=== PATIENT | female | born 1975 | race Caucasian/White ===

== ENCOUNTER 2018-12-13 14:57 | Inpatient (IN) | payer OTHER ==
[~2018-12-13] VITALS: Ht 170.2 cm; Wt 45.8 kg
[2018-12-13] VITALS (31 sets, daily range): BP systolic 0–182; BP diastolic 0–122
--- NOTE | 2018-12-13 14:59 | NUR ---
SEE CODE FLOW SHEET
--- NOTE | 2018-12-13 15:14 | NUR ---
POSITIVE COLOR CHANGE
--- NOTE | 2018-12-13 15:20 | NUR ---
1 LITER NS IVF BOLUS
--- NOTE | 2018-12-13 15:22 | NUR ---
PCXR TUBE PLACEMENT ET TUBE PULLED BACK TO 24@LIP.
--- NOTE | 2018-12-13 15:26 | NUR ---
PCXR FOR ET TUBE PLACEMENT.
--- NOTE | 2018-12-13 15:28 | NUR ---
NOT ABLE TO CALL NEXT OF KIN ON PATIENT INFORMATION DUE TO NUMBER BEING OUT OF ORDER.
[2018-12-13 15:37] LABS: PO2 57.1 mmHg (75.0-100.0)
[2018-12-13 15:54] LABS: HEMATOCRIT 34.3 % (37.0-47.0); HEMOGLOBIN 10.6 gm/dL (12.0-15.0); MCH 31.2 pg (26.0-34.0); MCV 100.5 fL (80.0-100.0); MPV 8.4 fl. (7.2-11.1); NUCLEATED RBCS 0 /100WBC; PLATELET COUNT* 209 thou/uL (150-400); RBC 3.41 mil/uL (4.20-5.00); RDW-CV 14.3 % (10.5-14.5); WBC 8.2 thou/uL (4.0-11.0)
[2018-12-13 16:01] LABS: CALCIUM 7.4 mg/dL (8.5-10.1); CREATININE 1.2 mg/dL (0.6-1.3); POTASSIUM 3.8 mmol/L (3.5-5.1)
[2018-12-13 16:14] LABS: ALBUMIN 2.1 g/dL (3.4-5.0); MAGNESIUM 2.4 mg/dL (1.8-2.4); TOTAL BILIRUBIN 0.3 mg/dL (<0.1-1.0); TROPONIN-I LEVEL 0.16 ng/mL (<0.06)
--- NOTE | 2018-12-13 16:18 | NUR ---
PT TO [facility] WITH CATH TEAM ON MONITOR WITH RT
[2018-12-13 16:43] LABS: ABSOLUTE MONOCYTES 0.5 thou/uL (0.0-1.2); ABSOLUTE NEUTROPHILS 2.7 thou/uL (1.6-8.1); PLATELET ESTIMATE ADEQUATE
--- NOTE | 2018-12-13 16:49 | NUR ---
PLACED TEMP SENSING ECHEVERRIA CATHETER AND POSITIONED CODE ICE PADS WITH MAIN CHAIREZ IN THE EMERGENCY DEPARTMENT PRIOR TO PT TRANSFER TO EXECUTIVE LEGAL SECRETARY. EXECUTIVE LEGAL SECRETARY STATED THEY WERE NOT GOING TO HOOK PT UP TO CODE ICE MACHINE AT THIS TIME AND THE MACHINE WAS BROUGHT INTO ICU BED 4 TO AWAIT PT ARRIVAL. WILL SIGN OFF AT THIS TIME
[2018-12-13 16:53] LABS: BE -25.4 mmol/L (-2 to +3); PO2 110.9 mmHg (75.0-100.0)
[2018-12-13 16:54] LABS: pH 6.783 (7.340-7.450)
[2018-12-13 16:55] LABS: PCO2 70.7 mmHg (35.0-45.0)
[2018-12-13 18:23] LABS: ANTI-Xa-UNFRACTIONATED HEP 7.104; BE -16.2 mmol/L (-2 to +3); PO2 74.3 mmHg (75.0-100.0)
--- NOTE | 2018-12-13 18:25 | CARD ---
[address] [address] CARDIAC CATH REPORT Name: NASEEM THOMAS Room: [address] IN ..#: [id number] Admission: 12/13/18 Attend Phys: Elina Mckeon MD Discharge: Date of : 77 Report #: [id number] THIS REPORT FOR: //name// APPROVED REPORT Study performed: 12/13/2018 16:10:27 Patient Details Patient Status: In-Patient Room #: The patient is a 43 year-old female Event Personnel Chad Pena Visitor Services Representative, Joanne Johnson RN Supervisor Sign Shop, Dulce Maria Hidalgo Monitor, Rj Martinez PORTFOLIO MANAGER Monitor, Arnaldo Rm PORTFOLIO MANAGER Scrub Procedures Performed Left Heart Cath w/or w/o Coronaries [id number] [facility] Indication Arrhythmia, Syncope, The patient suffered a cardiac arrest at a local store. Bystander CPR was initiated. When paramedics arrived, the patient was in ventricular fibrillation and was cardioverted. She was intubated and brought to the laboratory chemist on an emergent basis. The patient was on Levophed and intubated on arrival to the laboratory chemist. Procedure Narrative The patient was brought emergently to the Cardiac Catheterization Laboratory and was prepped and draped in a sterile manner. The right femoral was infiltrated with 1% Lidocaine subcutaneous anesthesia. A 6fr Ultimum Sheath sheath was inserted into the right femoral artery. Coronary angiography was performed using coronary diagnostic catheters. The right coronary system was accessed and visualized with a Diagnostic - JR4 catheter. The left coronary system was accessed and visualized with a Diagnostic - JL4 catheter. The left ventricle was accessed and visualized with a Diagnostic - ANG PIG catheter. Left ventricular/Aortic Valve gradient assessed via catheter pullback. Left ventriculogram was performed in REY projection. The patient tolerated the procedure well and there were no complications associated with the procedure. There was no hematoma. 6FR SHEATH PLACED INTO HER RIGHT FEMORAL VEIN. Arterial and venous sheaths were sutured in place [place] [address] CARDIAC CATH REPORT Name: MARTHANASEEM M Room: [address]#: [id number] Admission: 12/13/18 Attend Phys: Elina Mckeon MD Discharge: Date of : 77 Report #: [id number] Intraoperative Conscious Sedation Sedation start time: 433 Case end Time: 447 Fluoro Time: 1.2 minutes Dose: DAP 74014 cGycm2 27.8 mGy Contrast Type and Amount: Omnipaque 130 ml Coronary Angiography The patient's coronary anatomy is right dominant. [place] Artery Percent Stenosis Left Main: 0 % Prox LAD: 0 % Mid/Distal LAD: 0 % Circumflex: 0 % RCA: 0 % Ramus: % Left Ventriculography The left ventricular ejection fraction is estimated to be 25-30%. Left ventricular wall motion abnormalities are present. There is no mitral insufficiency. Akinesis noted of the distal anterior wall and apex. Hemodynamics The aortic pressure is 134/91 mmHg with a mean of 76 mmHg. The left ventricular pressure is 129/20 mmHg with a mean of mmHg. The left ventricular end diastolic pressure is 25 mmHg. There was no gradient across the aortic valve upon pullback. Pullback from the left ventricle to the aorta revealed no gradient across the aortic valve. Conclusion 1. Apical ballooning syndrome Recommendations Code Ice protocol <ELECTRONICALLY SIGNED> By: Chad Pena MD, [facility] 12/13/181824 24 24Dakhadar Pena MD, FACC /INF
[2018-12-13 18:27] LABS: PCO2 52.5 mmHg (35.0-45.0); pH 7.055 (7.340-7.450)
--- NOTE | 2018-12-13 18:32 | NUR ---
CONSULTED PULM DUE TO CRITICAL ABG RESULTS. MAIN BACA NOTIFIED WELL.
[2018-12-13 18:51] LABS: MCH 30.6 pg (26.0-34.0); MCHC 33.2 g/dL (28.0-37.0); MPV 7.9 fl. (7.2-11.1); NUCLEATED RBCS 0 /100WBC; RBC 4.76 mil/uL (4.20-5.00); RDW-CV 13.6 % (10.5-14.5); WBC 19.7 thou/uL (4.0-11.0)
[2018-12-13 18:53] LABS: HEMOGLOBIN 14.6 gm/dL (12.0-15.0); MCV 92.4 fL (80.0-100.0); PLATELET COUNT* 347 thou/uL (150-400)
[2018-12-13 18:56] LABS: CALCIUM 7.1 mg/dL (8.5-10.1); CREATININE 1.4 mg/dL (0.6-1.3)
--- NOTE | 2018-12-13 18:56 | NUR ---
RECEIVED PT FROM CALL CIRCUIT WORKER @ 0510. . PT PLACED ON CODE ICE PROTOCOL. PT UNRESPONSIVE. PT ON VENTILATOR. NO SEDATION. PUPILS 4+ AND NON-REACTIVE. ART LINE IN PLACE IN RIGHT GROIN. PT HYPERTENSIVE. 1 DOSE PRN HYDRLAZINE ADMININSTERED PER EMAR. ACCOMPANIED PT TO CT FOR STAT CT ORDERS. EMAR STATES RECTAL ASPIRIN ORDERED AT 1534. CALLED ER AND PHARMACY. CONFIRMED MEDICATION NOT ADMININSTERED. CALLED PHARMACY AND PHARMACY TO BRING MEDICATION.
[2018-12-13 19:00] LABS: APTT 30.1 Seconds (25.0-31.3); INR 1.3; PROTIME 12.9 Seconds (9.20-11.50)
[2018-12-13 19:09] LABS: MAGNESIUM 2.7 mg/dL (1.8-2.4); PHOSPHORUS* 8.1 mg/dL (2.5-4.9); TROPONIN-I LEVEL 0.47 ng/mL (<0.06)
[2018-12-13 19:18] LABS: FIBRINOGEN 207 mg/dL (200-340)
[2018-12-13 19:28] LABS: ABSOLUTE LYMPHOCYTES 2.8 thou/uL (0.8-5.3); ABSOLUTE MONOCYTES 0.4 thou/uL (0.0-1.2); ABSOLUTE NEUTROPHILS 16.5 thou/uL (1.6-8.1)
[2018-12-13 19:30] LABS: CLUMPED PLTS OCCASIONAL; PLATELET ESTIMATE ADEQUATE
--- NOTE | 2018-12-13 20:26 | NUR ---
DR NOTIFED THAT PT HAS NO RESPONSES AND PUPILS 4 AND NON REACTIVE. ASKED IF WANTED A NEURO CONSULT. AND AT THIS TIME NO CONSULT FOR NEURO. CRITICAL ABG'S CALLED TO PULMONARY. PULMONARY CALLED WHILE THIS RN IN CT WITH PT. PULMONARY AWARE THAT THIS RN AND PT IN CT. PULMONARY RE-PAGED WITH CRITICAL ABG'S. RECEIVED ORDERS TO INCREASE TIDAL VOLUME AND FLUID ORDERS RECEIVED.
[2018-12-13 22:33] LABS: AMP/METHAMP POSITIVE (Negative); BARBITURATES Negative (Negative); BENZODIAZEPINES POSITIVE (Negative); COCAINE Negative (Negative); METHADONE Negative (Negative); OPIATES Negative (Negative); PCP Negative (Negative); THC POSITIVE (Negative)
[2018-12-13 23:14] LABS: BE -9.7 mmol/L (-2 to +3)
[2018-12-13 23:16] LABS: PCO2 51.7 mmHg (35.0-45.0); pH 7.179 (7.340-7.450)
[2018-12-13 23:17] LABS: PO2 57.9 mmHg (75.0-100.0)
[2018-12-14] VITALS (43 sets, daily range): BP systolic 24–177; BP diastolic 8–115
[2018-12-14 01:06] LABS: ABSOLUTE LYMPHOCYTES 1.2 thou/uL (0.8-5.3); ABSOLUTE MONOCYTES 1.1 thou/uL (0.0-1.2); ABSOLUTE NEUTROPHILS 20.5 thou/uL (1.6-8.1); BASOPHILS 0.1 %; HEMATOCRIT 39.4 % (37.0-47.0); HEMOGLOBIN 13.1 gm/dL (12.0-15.0); LYMPHOCYTES 5.2 %; MCHC 33.2 g/dL (28.0-37.0); MCV 90.6 fL (80.0-100.0); MONOCYTES 4.8 %; MPV 7.9 fl. (7.2-11.1); NUCLEATED RBCS 0 /100WBC; PLATELET COUNT* 366 thou/uL (150-400); POLYS 89.9 %; RBC 4.35 mil/uL (4.20-5.00); RDW-CV 13.5 % (10.5-14.5); WBC 22.8 thou/uL (4.0-11.0)
[2018-12-14 01:28] LABS: APTT 24.8 Seconds (25.0-31.3); INR 1.3; PROTIME 12.9 Seconds (9.20-11.50)
[2018-12-14 01:33] LABS: CALCIUM 6.6 mg/dL (8.5-10.1); CREATININE 1.3 mg/dL (0.6-1.3); MAGNESIUM 2.2 mg/dL (1.8-2.4); PHOSPHORUS* 5.3 mg/dL (2.5-4.9); POTASSIUM 3.7 mmol/L (3.5-5.1)
[2018-12-14 04:34] LABS: BE -7.5 mmol/L (-2 to +3); PO2 66.5 mmHg (75.0-100.0)
[2018-12-14 04:36] LABS: PCO2 51.2 mmHg (35.0-45.0)
[2018-12-14 04:58] LABS: ABSOLUTE BASOPHILS 0.1 thou/uL (0.0-0.2); ABSOLUTE LYMPHOCYTES 0.7 thou/uL (0.8-5.3); ABSOLUTE MONOCYTES 0.5 thou/uL (0.0-1.2); ABSOLUTE NEUTROPHILS 17.3 thou/uL (1.6-8.1); BASOPHILS 0.3 %; EOSINOPHILS 0.1 %; HEMOGLOBIN 13.2 gm/dL (12.0-15.0); MCH 29.7 pg (26.0-34.0); MCHC 33.1 g/dL (28.0-37.0); MCV 89.9 fL (80.0-100.0); MONOCYTES 2.9 %; MPV 7.7 fl. (7.2-11.1); NUCLEATED RBCS 0 /100WBC; PLATELET COUNT* 346 thou/uL (150-400); POLYS 92.7 %; RBC 4.45 mil/uL (4.20-5.00); RDW-CV 13.2 % (10.5-14.5); WBC 18.6 thou/uL (4.0-11.0)
[2018-12-14 05:04] LABS: APTT 24.5 Seconds (25.0-31.3); INR 1.2; PROTIME 12.1 Seconds (9.20-11.50)
[2018-12-14 05:26] LABS: CALCIUM 6.7 mg/dL (8.5-10.1); CREATININE 1.2 mg/dL (0.6-1.3); MAGNESIUM 2.1 mg/dL (1.8-2.4); PHOSPHORUS* 4.6 mg/dL (2.5-4.9); POTASSIUM 3.4 mmol/L (3.5-5.1)
--- NOTE | 2018-12-14 07:48 | NUR ---
Pt on hypothermic protocol. Pt just brought back to room from CT at shift change (1899). Pt had been unhooked from [facility] for CT. After restarting therapy, [employer] alarmed with 2 error messages. Called phone number from machine to trouble shoot. After some checks, determined that problem likely with pads. Attempted to restart therapy with new machine, but same error messages alarmed with 2nd machine. New pads placed and therapy re-initiated at 2129. Old pads left in room so they can be returned to company for diagnostics; number left with day shift RN. At start of shift, pt not moving and pupils fixed at 5 mm. By 2144, pt moving arms bilat, but not appearing to be purposeful movements; not following commands. Ativan given, which helped with reducing pt's arm movements. Later in shift, around 4123-3440, pt began shivering. Fentanyl gtt started. Pt appeared drawn up with arms bent and tight to body, and legs straight and stiff. Versed and vecuronium gtts initiated at 0500, and soon afterward pt's body became relaxed and motionless. At shift change this am, fentanyl gtt at 50 mcg/hr, versed gtt at 4 mg/hr, and vecuronium at 1 mcg/kg/min. Pupils now 2 mm and fixed. Beginning at approx 2300, some bloody drainage noted with ET suctioning; by 2330 bloody drainage steadily draining from ET tube and with suctioning. Pt turned to L side and drainage continued. At 0400, SaO2 86-90 consistently. ABGs drawn and called to paralegal supervisor (Dr. Barclay). Pt turned to R side prior to paralegal supervisor calling back, and SaO2 climbed to mid-upper 90s. Breath snds had been coarse, but clear after being turned to R side. At end of shift, SaO2 remains upper 90s. BP stable throughout shift, with DBP 80s-90s. Will continue to monitor.
[2018-12-14 09:11] LABS: BE -8.2 mmol/L (-2 to +3); PCO2 35.9 mmHg (35.0-45.0); pH 7.301 (7.340-7.450)
[2018-12-14 09:16] LABS: PO2 424.1 mmHg (75.0-100.0)
--- NOTE | 2018-12-14 10:30 | NUR ---
PT ADMITTED YESTERADY, INTUBATED AND REMAINS ON VENT. NO FAMILY HAS BEEN HERE OR CALLED. NURSING IS WORKING ON TRYNG TO LOCATE FAMILY.
--- NOTE | 2018-12-14 11:00 | NUR ---
RIGHT BASILIC VESSEL ACCESSED FOR 5 MONEGASQUE TRIPLE LUMEN PICC. LINE PRE-TRIMMED TO 35 CM, UNABLE TO ADVANCE LINE INTO THE SVC PER SHERLOCK MAGNET AND 3CG. LINE RETRACTED AND RE-ADVANCED SEVERAL TIMES WITH PATIENT REPOSITIONED IN HIGH NAIK; ERIK QUACH ASSISTED WITH REPOSITIONING PATIENT. LINE POWERFLUSHED WITH 40 ML OF NORMAL SALINE WITH WIRE RETRACTED BUT UNABLE TO OBSERVE SHERLOCK AND 3CG CONFIRMATION. DR GUERRERO NOTIFIED, LINE PULLED BACK AND COILED ON THE EXTERIOR OF THE ARM AND SECURED AT THE 25CM KERMIT TO DWELL A MIDLINE 10 CM IN LENGTH. GUIDE WIRE REMOVED LINE FLUSHED AND INSERTION SITE DRESSED.
--- NOTE | 2018-12-14 12:12 | NUR ---
Patient has no children. Mother, Marta Rosario is out of town but is packing and will head back soon. Either arrive tonight or in the morning. Mother is Marta Rosario- #[phone].
--- NOTE | 2018-12-14 12:55 | EKG ---
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: : 1975 Requested By: Valeriy Crum Order Number: [id number] MD: Johnny Salazar Measurements Intervals [place] Rate: 105 P: 71 HI: 160 QRS: -55 QRSD: 123 T: 74 QT: 386 QTc: 511 Interpretive Statements Sinus tachycardia Ventricular premature complex Right atrial enlargement Nonspecific IVCD with LAD Inferolateral infarct, acute (LCx) Lateral leads are also involved Artifact in lead(s) II,III,aVR,aVL,aVF,V1,V3,V4,V5,V6 No previous ECG available for comparison Electronically Signed On 12-14-2018 12:55:01 CDT by Johnny Salazar [email or web address] <ELECTRONICALLY SIGNED> By: Johnny Salazar MD, FACC 12/14/18 1255 1509 1509 Johnny Salazar MD, FACC /EPI
--- NOTE | 2018-12-14 12:55 | EKG ---
[place] [address] ELECTROCARDIOGRAM REPORT Name: NASEEM THOMAS Room: [address] ADM IN M.R.#: [id number] Admission: 12/13/18 Attend Phys: Elina Mckeon MD Discharge: Date of : 77 Report #: [id number] THIS REPORT FOR: //name// [facility] ED Test Date: 2018-12-13 Test Time: 15:31:09 Pat Name: NASEEM THOMAS Department: Room: [address] Gender: F Learning Disabilities Specialist: : 1975 Requested By: Elina Mckeon Order Number: [id number] Reading MD: Johnny Salazar Measurements Intervals [place] Rate: 78 P: 62 [place]: 194 QRS: -44 QRSD: 124 T: 30 QT: 471 QTc: 537 Interpretive Statements Sinus rhythm Low voltage in limb leads Atrial premature complex Consider right atrial enlargement Nonspecific IVCD with LAD No previous ECG available for comparison Electronically Signed On 12-14-2018 12:55:44 CDT by Johnny Salazar [email or web address] <ELECTRONICALLY SIGNED> By: Johnny Salazar MD, [facility] 12/14/18 1255 153 30 Johnny Salazar MD, FAC /EPI
[2018-12-14 14:54] LABS: BE -9.5 mmol/L (-2 to +3); PO2 88.4 mmHg (75.0-100.0)
[2018-12-14 14:58] LABS: pH 7.298 (7.340-7.450)
--- NOTE | 2018-12-14 15:23 | NUR ---
Marta Rosario ([facility]) home number- [phone] Janeen (SISTER, 2nd Call) cell- [phone] Johnny ([facility]) cell- [phone]
[2018-12-14 15:25] LABS: ABSOLUTE LYMPHOCYTES 1.6 thou/uL (0.8-5.3); ABSOLUTE MONOCYTES 0.3 thou/uL (0.0-1.2); ABSOLUTE NEUTROPHILS 13.3 thou/uL (1.6-8.1); BASOPHILS 0.2 %; EOSINOPHILS 0.1 %; HEMATOCRIT 38.9 % (37.0-47.0); HEMOGLOBIN 13.4 gm/dL (12.0-15.0); LYMPHOCYTES 10.3 %; MCH 30.7 pg (26.0-34.0); MCHC 34.5 g/dL (28.0-37.0); MCV 89.1 fL (80.0-100.0); MONOCYTES 1.8 %; NUCLEATED RBCS 0 /100WBC; PLATELET COUNT* 307 thou/uL (150-400); POLYS 87.6 %; RBC 4.36 mil/uL (4.20-5.00); RDW-CV 13.4 % (10.5-14.5); WBC 15.2 thou/uL (4.0-11.0)
[2018-12-14 15:40] LABS: CALCIUM 6.3 mg/dL (8.5-10.1); CREATININE 1.3 mg/dL (0.6-1.3); MAGNESIUM 1.9 mg/dL (1.8-2.4); PHOSPHORUS* 4.9 mg/dL (2.5-4.9); POTASSIUM 3.4 mmol/L (3.5-5.1)
[2018-12-14 16:07] LABS: APTT 26.8 Seconds (25.0-31.3); INR 1.1; PROTIME 11.4 Seconds (9.20-11.50)
--- NOTE | 2018-12-14 16:21 | 2DMMODE ---
[place] [address] 2 D/M-MODE ECHOCARDIOGRAM Name: NASEEM THOMAS Room: [address] IN [facility]#: [id number] Admission: 12/13/18 Attend Phys: Elina Mckeon MD Discharge: Date of : 77 Date of Service: 12/14/18 1621 Report #: [id number] THIS REPORT FOR: //name// APPROVED REPORT Study performed: 12/14/2018 13:45:03 EXAM: Comprehensive 2D, Doppler, and color-flow Echocardiogram Patient Location: In-Patient Room #: [facility] Status: routine BSA: 1.67 HR: 58 bpm BP: 102/76 mmHg Rhythm: NSR Other Information Study Quality: Good Indications Arrhythmia 2D Dimensions IVSd: 9.30 (7-11mm) LVOT Diam: 20.34 (18-24mm) LVDd: 44.04 mm PWd: 8.67 (7-11mm) LVDs: 36.25 (25-40mm) Aortic Root: 26.53 mm Volumes Left Atrial Volume (Systole) LA ESV Index: 26.50 mL/m2 Aortic Valve AoV Peak Vinod.: 0.58 m/s AO Peak Gr.: 1.35 mmHg LVOT Max P.47 mmHg AO Mean Gr.: 0.72 mmHg LVOT Mean P.31 mmHg LVOT Max V: 0.34 m/s AO V2 VTI: 8.53 cm LVOT Mean V: 0.27 m/s WILLIAM (VTI): 2.24 cm2 LVOT V1 VTI: 5.89 cm TDI Lateral E' Vinod.: 0.04 m/[place] [address] 2 D/M-MODE ECHOCARDIOGRAM Name: NASEEM THOMAS Room: [address] IN [facility].#: [id number] Admission: 12/13/18 Attend Phys: Elina Mckeon MD Discharge: Date of : 77 Date of Service: 12/14/18 1621 Report #: [id number] RAP Estimate: 5.00 mmHg TR Peak Gr.: 17.40 mmHg RVSP: 22.00 mmHg PA Pressure: 22.00 mmHg Left Ventricle The left ventricle is normal size. Takotsubo appearing apical akinesis. There is normal left ventricular wall thickness. Left ventricular systolic function is severely decreased. LVEF is 20-25%. This study is not technically sufficient to allow evaluation of the LV diastolic function. Right Ventricle Right ventricle is mildly dilated. The right ventricular systolic function is normal. Atria The left atrium size is normal. The right atrium size is normal. Aortic Valve The aortic valve is normal in structure. No aortic regurgitation is present. There is no aortic valvular stenosis. Mitral Valve The mitral valve is normal in structure. Trace mitral regurgitation. No evidence of mitral valve stenosis. Tricuspid Valve The tricuspid valve is normal in structure. pa pressure 30 mm hg Trace tricuspid regurgitation. Pulmonic Valve Pulmonic valve is not well visualized. There is no pulmonic valvular regurgitation. Great Vessels The aortic root is normal in size. IVC is normal in size and collapses >50% with inspiration. Pericardium There is no pericardial effusion. <Conclusion> LVEF is 20-25%. Right [place] [address] 2 D/M-MODE ECHOCARDIOGRAM Name: NASEEM THOMAS Room: [address] IN .R.#: [id number] Admission: 12/13/18 Attend Phys: Elina Mckeon MD Discharge: Date of : 77 Date of Service: 12/14/181620 Report #: [id number] pa pressure 30 mm hg Trace tricuspid regurgitation. <ELECTRONICALLY SIGNED> By: Chad Pena MD, FAC 12/14/181620 20 20 Chad Pena MD, FACC /INF
--- NOTE | 2018-12-14 17:46 | NUR ---
12/14: Hypothermic protocol in place, start rewarm at 2000 per MD. Following labs, electrolyte replacement. Both K+ and Mag replaced. Restarted Levo after initiating of low dose metoprolol. Patient coded at 1550, V-tach with loss of blood pressure and pulse, CPR given- see paper chart for detail. Levophed maxed for about 15min then was able to begin titirating back down. ETT was switched out d/t large air leak after CPR. Amio bolus given per Cardiology. Family notified and they returned to the hospital, now at bedside.
[2018-12-14 21:51] LABS: CALCIUM 6.5 mg/dL (8.5-10.1); CREATININE 1.4 mg/dL (0.6-1.3); MAGNESIUM 2.8 mg/dL (1.8-2.4); PHOSPHORUS* 5.3 mg/dL (2.5-4.9); POTASSIUM 4.6 mmol/L (3.5-5.1)
[2018-12-14 22:09] LABS: BE -10.3 mmol/L (-2 to +3); PCO2 40.1 mmHg (35.0-45.0)
[2018-12-14 22:11] LABS: PO2 222.9 mmHg (75.0-100.0); pH 7.235 (7.340-7.450)
[2018-12-15] VITALS (51 sets, daily range): BP systolic 87–178; BP diastolic 59–136
[2018-12-15 03:49] LABS: ABSOLUTE LYMPHOCYTES 1.6 thou/uL (0.8-5.3); ABSOLUTE MONOCYTES 0.6 thou/uL (0.0-1.2); ABSOLUTE NEUTROPHILS 19.4 thou/uL (1.6-8.1); BASOPHILS 0.1 %; EOSINOPHILS 0.1 %; HEMATOCRIT 36.7 % (37.0-47.0); HEMOGLOBIN 12.1 gm/dL (12.0-15.0); LYMPHOCYTES 7.3 %; MCH 29.6 pg (26.0-34.0); MCHC 32.9 g/dL (28.0-37.0); MONOCYTES 2.6 %; MPV 8.2 fl. (7.2-11.1); NUCLEATED RBCS 0 /100WBC; PLATELET COUNT* 271 thou/uL (150-400); POLYS 89.9 %; RBC 4.08 mil/uL (4.20-5.00); RDW-CV 13.6 % (10.5-14.5); WBC 21.6 thou/uL (4.0-11.0)
[2018-12-15 04:02] LABS: ALBUMIN 2.1 g/dL (3.4-5.0); CALCIUM 6.6 mg/dL (8.5-10.1); CREATININE 1.5 mg/dL (0.6-1.3); POTASSIUM 3.9 mmol/L (3.5-5.1); TOTAL BILIRUBIN 0.5 mg/dL (<0.1-1.0); TOTAL PROTEIN 4.7 g/dL (6.4-8.2)
[2018-12-15 05:09] LABS: BE -6.7 mmol/L (-2 to +3); PCO2 31.7 mmHg (35.0-45.0); pH 7.359 (7.340-7.450)
[2018-12-15 05:11] LABS: PO2 126.6 mmHg (75.0-100.0)
--- NOTE | 2018-12-15 06:46 | NUR ---
PATIENT REWARMING STARTED AT 1999, REACHED 36.5 DEGREES C AT 0615. PATIENT PRESSURES SOFT DURING SHIFT, BUT WITHIN ACCEPTABLE PARAMETERS. ABLE TO TITRATE LEVO DOWN TO 6. VEC OFF AT 0620. VSS. PERFROMED EKG DURING SHIFT FOR ABNORMAL, ABRUPT CHANGE IN HEART RHYTHM. PLACED IN CHART. PATIENT'S FAMILY WAS AT BEDSIDE DURING EVENING AND WILL RETURN IN AM. EVENING ABGS RETURNED CRITICAL RESULTS. CONSULTED PULMONARY AND RECEIVED ORDERS. WAS NOT ABLE TO TURN PATIENT DURING SHIFT DUE TO HIGH RISK OF LOSING ART LINE. ATTEMPTED TURNS AND POSITION CHANGES 4 TIMES, ART LINE WOULD NOT READ PROPERLY OR REGISTER WITH EACH ATTEMPT. [facility] CALLED FOR STATUS UPDATE ON PATIENT, UPDATE GIVEN. WILL CONTINUE TO MONITOR.
--- NOTE | 2018-12-15 07:53 | CON ---
[address] [address] CONSULTATION Name: NASEEM THOMAS Room: [address] ADM IN M.R.#: [id number] Admission: 12/13/18 Attend Phys: Elina Mckeon MD Discharge: Date of : 77 Report #: [id number] THIS REPORT FOR: //name// CC: Chad Pena FAM unknown Elina Mckeon REQUESTING PHYSICIAN: Dr. Mckeon REASON FOR CONSULTATION: Status post cardiopulmonary arrest, on ventilator. DISCUSSION: The patient is a 43-year-old woman who was brought into the Emergency Department yesterday after she sustained an out of hospital cardiopulmonary arrest. Apparently, this was witnessed at a local [employer]. CPR was started by a bystander. According to the ED notes, rhythm on the scene was VFib. She was shocked in the field. They did have a return of circulation. However, she coded again en route. Was given additional medications per ACLS guidelines. Upon arrival at [place], she was in cardiopulmonary arrest. She was resuscitated. Was taken to the laborer cheesemaking by Dr. Pena. Did not have any coronary artery disease. Did have a decrease in her EF. The cooling protocol was started right back in the ICU. With the cooling protocol, she is sedated. She is on Versed and fentanyl drips. Vecuronium was started due to shivering. Currently, all underway at this time. It will be at least several more hours before the warmup starts. No past medical history is available on her. According to the staff, attempts to reach family have been unsuccessful. She was on Levophed that has been weaned off. Had marked respiratory and metabolic acidosis. Has been on a bicarb drip overnight. Also been on the ventilator. Has had a moderate to large amount of secretions, which had been bloody. Has had good urine output overnight. She empirically was started on antibiotics to cover for pneumonia, possible sepsis. As noted above, unable to obtain any type of past medical history, family history, social history or to perform review of systems. PHYSICAL EXAMINATION: GENERAL APPEARANCE: A woman who does look older than her stated age. Intubated, also has an oral gastric tube in place. Has a cooling protocol underway. Currently, has interosseous venous sheath and arterial line in her right groin area. She is currently unresponsive given her sedation and paralytics. HEENT: Head is normocephalic. Mucous membranes do look moist. NECK: Negative for any definite adenopathy. No supraclavicular adenopathy. HEART: Tones distant and are regular. She is mildly tachycardic in the [place] [address] CONSULTATION Name: NASEEM THOMAS Albert Room: [address] IN M.R.#: [id number] Admission: 12/13/18 Attend Phys: Elina Mckeon MD Discharge: Date of : 77 Report #: [id number] LUNGS: A little coarse. No wheezing is heard. Excursion is equal. No subcutaneous emphysema is noted. ABDOMEN: Appears soft, without any definite hepatosplenomegaly appreciated. Pratt catheter in place. EXTREMITIES: She has no clubbing. Lower extremities are thin. No edema is noted. SKIN: Cool. She is dry. NEUROLOGIC: Unable to assess given the sedation and paralytics. LABORATORY AND X-RAY FINDINGS: Chemistry: Generally this morning, BUN is 17, creatinine of 1.2, potassium is 3.4. Transaminase is elevated. Total protein was only 4.0 with an albumin of 2.1. ProBNP just over 2700. Troponin peaked at 0.95. Followup is pending. Lactic acid was 8.2, down to 3.1. INR is 1.2. D-dimer was greater than 35. Drug screen is positive for amphetamine/methamphetamines, benzodiazepines and marijuana. White blood cell count initially was 8.2. Peaked at 22,800. Followup is down to 18,600. Hemoglobin 13.2, hematocrit of 40, platelets are normal. test was negative. Prealbumin 16.3. Initial arterial blood gases done at arrival are confusing in the computer. It does appear that her pH was 6.78, pCO2 of 71, pO2 of 111, bicarb of 10. Most recent gas was done late last night. PH 7.18, pCO2 of 52, pO2 of 58. Blood gas from this morning is pending. Blood culture is pending. Sputum culture has been requested, has not yet been sent. Urine culture is pending as well. A chest x-ray was reviewed. She did not have a study done this morning. A film done yesterday evening showed endotracheal tube in position. Extensive infiltrate seen primarily on the right. CT angiogram was negative for pulmonary emboli. Endotracheal tube noted. Did have extensive consolidative changes seen primarily on the right side. Some mild atelectatic changes seen as well. IMPRESSION: 1. Acute respiratory failure following a cardiopulmonary arrest. Has been successfully resuscitated from a circulatory standpoint. Currently on cooling protocol. Appears to have apical ballooning syndrome. 2. Pulmonary infiltrates, most likely had an acute aspiration. Some of this could be related to pulmonary edema given the low ejection fraction noted. 3. Metabolic acidosis related to circulatory collapse. Followup gases pending, but based on her chemistry profile, it has been improving. 4. Substance abuse positive for marijuana and methamphetamine. 5. Overall condition is critical. It is not clear, underlying mental status may reflect. RECOMMENDATIONS: 1. Follow up blood gases, make ventilator adjustments as needed. 2. Continue antibiotics at this time to cover for aspiration. 3. Needs sputum culture sent. 4. Depending on how she does, may [place] [address] CONSULTATION Name: NASEEM THOMAS Room: [address] IN [facility].#: [id number] Admission: 12/13/18 Attend Phys: Elina Mckeon MD Discharge: Date of : 77 Report #: [id number] 5. Continue neb treatments. 6. Continue steroids. <ELECTRONICALLY SIGNED> By: Courtney Baker MD 12/15/18 0753 0918 0034Courtney Baker MD /nt
--- NOTE | 2018-12-15 09:28 | NUR ---
Vec off operations logistics analyst. Patient re-warm at 730, Artic Sun removed. Versed off at 0830 and Fentanyl at 0930.
--- NOTE | 2018-12-15 10:48 | EKG ---
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 : 1975 Requested By: Chad Pena Order Number: [id number] Leidy MD: Chad Pena Measurements Intervals [place] Rate: 70 P: 60 [place]: 177 QRS: -11 QRSD: 112 T: 253 QT: 611 QTc: 660 Interpretive Statements Sinus rhythm Consider right atrial enlargement Anterior infarct, age indeterminate Lateral leads are also involved Prolonged QT interval Compared to ECG 12/13/2018 15:31:09 Myocardial infarct finding now present Prolonged QT interval now present Atrial premature complex(es) no longer present Electronically Signed On 12-15-2018 10:48:44 CDT by Chad Pena [email or web address] <ELECTRONICALLY SIGNED> By: Chad Pena MD, [facility] 12/15/18 1048 2354 2354 Chad Pena MD, [facility] /EPI
--- NOTE | 2018-12-15 10:50 | NUR ---
PT ADMITTED 12/13 OUT OF THE HOSPITAL CARDIAC ARREST/CODE ICE. PT NOW RE-WARMED, REMAINS ON VENT. SPOKE WITH MOTHER IN WAITING ROOM. MOTHER HAS NO QUESTIONS ABOUT PLAN OF CARE, SHE SAID NURSES HAVE DONE A GOOD JOB IN EXPLAINING THINGS TO HER. DISCUSSED ROLE OF CASE MGT, WILL CONTINUE TO FOLLOW.
--- NOTE | 2018-12-15 10:53 | EKG ---
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1975 Requested By: Chad Pena Order Number: [id number] Leidy MD: Chad Pena Measurements Intervals [place] Rate: 87 P: 73 [place]: 187 QRS: 17 QRSD: 91 T: 43 QT: 470 QTc: 566 Interpretive Statements Sinus rhythm t wave inversion consider anterior ischemia Consider right atrial enlargement Low voltage, extremity leads Prolonged QT interval Electronically Signed On 12-15-2018 10:53:14 CDT by Chad Pena [email or web address] <ELECTRONICALLY SIGNED> By: Chad Pena MD, [facility] 12/15/18 1053 0757 0757 Chad Pena MD, FACC /EPI
--- NOTE | 2018-12-15 11:16 | NUR ---
CONSULTED TO PLACE CENTRAL LINE. ORDER NOTED AND CONSENT NOTED TO BE SIGNED BY DR. DEVINE MEDICAL NECESSITY. RIGHT IJ ASSESED WITH ULTRASOUND. IJ NOTED TO BE WIDLEY PATENT AND EAST TO COMPRESS. RIGHT CENTRAL LINE IJ PLACED PER PROTOCOL. LINE ADVANCED 19CM LEAVING 6CM EXTERNAL. GOOD BRISK BLOOD RETURN NOTED AND EASY FLUSH. STAT CHEST X-RAY SHOWS TIP AT [facility]. ERIK CLAROS RN NOTIFIED. LINE RELEASED FOR USE. ARROW OLIVER TRIPLE LUMAN LOT [id number] EXP 08/17/19
--- NOTE | 2018-12-15 12:43 | NUR ---
SHEATH PULLED FROM GROIN BY FASHION ARTIST PERSONAL. CONTINUING GROIN CHECKS
[2018-12-15 14:23] LABS: BE -6.7 mmol/L (-2 to +3); PCO2 25.5 mmHg (35.0-45.0); PO2 106.7 mmHg (75.0-100.0); pH 7.419 (7.340-7.450)
--- NOTE | 2018-12-15 16:13 | NUR ---
MTN WAS NOTIFIED YESTERDAY AND FOLLOWED UP TODAY. PLEASE CALL MTN IF TALK OF COMFORT OR WITHDRAW OF CARE IS MENTIONED. THANKS
[2018-12-15 18:27] LABS: HEMATOCRIT 34.3 % (37.0-47.0); HEMOGLOBIN 11.3 gm/dL (12.0-15.0); MCH 30.1 pg (26.0-34.0); MCV 91.3 fL (80.0-100.0); MPV 8.5 fl. (7.2-11.1); RBC 3.75 mil/uL (4.20-5.00); RDW-CV 13.7 % (10.5-14.5); WBC 30.4 thou/uL (4.0-11.0)
[2018-12-15 18:27] LABS: BE -14.2 mmol/L (-2 to +3); PCO2 31.7 mmHg (35.0-45.0); PO2 65.2 mmHg (75.0-100.0)
[2018-12-15 18:31] LABS: pH 7.212 (7.340-7.450)
[2018-12-15 18:52] LABS: CALCIUM 7.3 mg/dL (8.5-10.1); CREATININE 1.8 mg/dL (0.6-1.3); MAGNESIUM 2.6 mg/dL (1.8-2.4); POTASSIUM 4.8 mmol/L (3.5-5.1)
--- NOTE | 2018-12-15 19:07 | NUR ---
12/15 Days: Rewarming completed at 0730. Versed off at 0830 and Fentanyl at 0930. EEG completed. See assessments for neuro exam. Around 6pm patient begain move head, cough/gag on ETT, eyes opened then had cardiac changes VT, loss of pulse, cpr begain and Code Blue called (see paper chart for code blue sheet). Patient breathing in the 40's post code with heart rate in the 130's, patient resedated at that time. Patient also had a low grade temp of 99.9 that returned to 98.8 post code. Once resedated vitals returned to pre-code status. ED and hospitalist at bedside for code. Cardiology and Pulmonology called post. Family was at bedside initially and was brought back in post. ED MD updated family post code.
[2018-12-16] VITALS (45 sets, daily range): BP systolic 88–110; BP diastolic 54–73
--- NOTE | 2018-12-16 01:13 | NUR ---
1899 REPORT RECEIVED FROM OFF GOING SHIFT AND CARE ASSUMED. ETT7.5 24 @TEETH INTACT AND CONNECTED TO VENTILATOR.FAMILY AT BEDSIDE. 1999 PT WENT INOT VTACH AND CPR STARTED . 2002 SHOCKED X1 ANBD RETURNED TO SINUS RHYTHM. DR LIN ARRIVED AND NEW ORDERS RECEIVED AND CARRIED OUT. BS 132. WILL CONTINUE TO MONITOR.
[2018-12-16 04:26] LABS: ABSOLUTE LYMPHOCYTES 0.5 thou/uL (0.8-5.3); ABSOLUTE MONOCYTES 0.5 thou/uL (0.0-1.2); ABSOLUTE NEUTROPHILS 18.2 thou/uL (1.6-8.1); BASOPHILS 0.1 %; HEMATOCRIT 29.4 % (37.0-47.0); HEMOGLOBIN 9.8 gm/dL (12.0-15.0); LYMPHOCYTES 2.6 %; MCH 29.9 pg (26.0-34.0); MCHC 33.4 g/dL (28.0-37.0); MCV 89.7 fL (80.0-100.0); MONOCYTES 2.5 %; MPV 8.7 fl. (7.2-11.1); NUCLEATED RBCS 0 /100WBC; PLATELET COUNT* 191 thou/uL (150-400); POLYS 94.8 %; RBC 3.27 mil/uL (4.20-5.00); RDW-CV 13.7 % (10.5-14.5); WBC 19.2 thou/uL (4.0-11.0)
[2018-12-16 05:00] LABS: ALBUMIN 2.1 g/dL (3.4-5.0); CALCIUM 7.1 mg/dL (8.5-10.1); CREATININE 1.5 mg/dL (0.6-1.3); POTASSIUM 4.3 mmol/L (3.5-5.1); TOTAL BILIRUBIN 0.7 mg/dL (<0.1-1.0); TOTAL PROTEIN 4.7 g/dL (6.4-8.2)
[2018-12-16 06:04] LABS: BE -4.7 mmol/L (-2 to +3); PCO2 29.9 mmHg (35.0-45.0); pH 7.411 (7.340-7.450)
[2018-12-16 06:06] LABS: PO2 227.4 mmHg (75.0-100.0)
--- NOTE | 2018-12-16 16:33 | EEG ---
[address] [address] EEG STUDY REPORT Name: MARTHANASEEM Albert Room: [address] IN .R.#: [id number] Admission: 12/13/18 Attend Phys: Elina Mckeon MD Discharge: Date of : 77 Report #: [id number] THIS REPORT FOR: //name// CC: Chad Pena FAM unknown Elina Mckeon HISTORY: The patient is a 43-year-old female who became unresponsive at the store. An EEG is requested for further evaluation. The patient is not on sedation. DESCRIPTION: The record consists of symmetric rfa-dj-amynosot amplitude 4-5 cycles per second activity, which is diffuse and bilaterally symmetrical. There was no change of state during the recording. Photic stimulation is not activating. No focal abnormalities or epileptiform discharges are noted. IMPRESSION: This is an abnormal adult record consistent with moderate diffuse cerebral dysfunction. There is no evidence of subclinical seizure activity on this recording. <ELECTRONICALLY SIGNED> By: Jennifer Steele DO 12/16/18 1633 1424 1901Rharish Steele DO /nt
--- NOTE | 2018-12-16 18:00 | NUR ---
PT ASSESSMENT CHARTED. LEVOPHED DRIP STILL RUNNING THROUGHOUT THE DAY. SEDATION DECREASED AND VERSED DRIP RUNNING AT 1MG/HR. PT NOT RESPONDING MUCH TO TACTILE STIMULUS. PT CURRENTLY HAS A COUGH REFLEX AND WITHDRAWS TO PAIN. SEDATION VACATION NOT ACCOMPLISHED DUE TO CARDIAC INSTABILITY. WILL CONTINUE TO MONITOR FOR ABILITY TO DECREASE SEDATION. PT TOLERATES TURNING AND WAS TURNED Q2H. RESTRAINTS UNNECESSARY PATIENT IS NOT MOVING ARMS. TUBE FEEDING CURRENTLY RUNNING AT 25 ML/HR. UNABLE TO TITRATE UP RESIDUALS HAVE BEEN HIGH. WILL HOLD AND CONTINUE TO MONITOR.
[2018-12-17] VITALS (62 sets, daily range): BP systolic 88–112; BP diastolic 50–78
[2018-12-17 04:29] LABS: ABSOLUTE LYMPHOCYTES 0.6 thou/uL (0.8-5.3); ABSOLUTE MONOCYTES 0.4 thou/uL (0.0-1.2); ABSOLUTE NEUTROPHILS 18.8 thou/uL (1.6-8.1); BASOPHILS 0.1 %; HEMATOCRIT 25.3 % (37.0-47.0); HEMOGLOBIN 8.3 gm/dL (12.0-15.0); MCH 29.6 pg (26.0-34.0); MCHC 32.9 g/dL (28.0-37.0); MCV 89.9 fL (80.0-100.0); MONOCYTES 2.2 %; MPV 8.5 fl. (7.2-11.1); NUCLEATED RBCS 0 /100WBC; PLATELET COUNT* 188 thou/uL (150-400); POLYS 94.7 %; RBC 2.82 mil/uL (4.20-5.00); RDW-CV 14.1 % (10.5-14.5); WBC 19.9 thou/uL (4.0-11.0)
[2018-12-17 04:57] LABS: ALBUMIN 2.3 g/dL (3.4-5.0); CALCIUM 7.6 mg/dL (8.5-10.1); CREATININE 1.3 mg/dL (0.6-1.3); POTASSIUM 4.3 mmol/L (3.5-5.1); TOTAL BILIRUBIN 0.7 mg/dL (<0.1-1.0); TOTAL PROTEIN 4.8 g/dL (6.4-8.2)
--- NOTE | 2018-12-17 05:13 | NUR ---
LEVOPHED GTT TITRATED DOWN TO 1 MCG/ MIN, FENTANYL AT 50 MCG/HR AND VERSED AT 3MG/HR RUNNING. PATIENT DOES NOT TOLERATE BEING STIMULATED, OPENS EYES, COUGHS AND GAGS WHEN SUCTIONING/BATHING. SINUS MOOKIE ON THE MONITOR, 40s-50s, FIO2 DOWN TO 40% WITH GOOD TOLERANCE. TF RUNNING AT 25CC/HR. OTHERWISE UNEVENTFUL NIGHT, Q2 TURNS FOR SKIN INTEGRITY. BATH GIVEN, HAIR SHAMPOOED.
[2018-12-17 05:21] LABS: BE -4.9 mmol/L (-2 to +3); PCO2 28.8 mmHg (35.0-45.0); PO2 67.5 mmHg (75.0-100.0); pH 7.428 (7.340-7.450)
--- NOTE | 2018-12-17 13:17 | NUR ---
PT'S SEDATION TURNED OFF AT 0930. SHE CURRENTLY HAS A COUGH REFLEX, CORNEAL REFLEX, AND WITHDRAWS TO PAIN. SHE IS NOT OPENING EYES OR FOLLOWING ANY COMMANDS AT THIS TIME. PT'S HEART RATE ALSO DIPS DOWN IN TO THE LOW 40'S DURING DEEP SUCTION.
--- NOTE | 2018-12-17 15:06 | CON ---
[address] [address] CONSULTATION Name: NASEEM THOMAS Room: [address] IN .R.#: [id number] Admission: 12/13/18 Attend Phys: Elina Mckeon MD Discharge: Date of : 77 Report #: [id number] THIS REPORT FOR: //name// CC: Chad Pena FAM unknown Elina Mckeon DATE OF SERVICE: 12/15/2018 HISTORY OF PRESENT ILLNESS: The patient is a 43-year-old female who was admitted on the after a cardiac arrest at [facility]. A bystander initiated CPR immediately. When EMS arrived, the patient was in ventricular fibrillation with agonal breathing. Narcan was administered. The patient was resuscitated en route to the facility. The patient's pulse was lost and CPR was again initiated. It took approximately 3 rounds of epinephrine, 300 mg of amiodarone and atropine in addition to CPR and E-tube placement. The patient remained in asystole despite these interventions. She arrived to the Emergency Room in cardiac arrest. CPR was continued. The patient was placed on the cooling protocol. The patient was eventually warmed and sedation was removed this morning at approximately 9:00 a.m. Since that time, the patient has not had any purposeful movements. Her family, her mother and one of her sisters is in the waiting room. PAST MEDICAL HISTORY: Unknown. PAST SURGICAL HISTORY: Unknown. MEDICATIONS: None. ALLERGIES: None. VITAL SIGNS: Temperature 37.2, pulse rate 88, respiratory rate 22 on the ventilator, blood pressure 115/78. LABORATORY DATA: Hematology: White blood cell count 21.6, hemoglobin 12.1, hematocrit 36.7, MCV 90, platelet count 271. INR 1.1. Chemistry: Sodium 139, potassium 3.9, chloride 106, carbon dioxide 23, BUN 23, creatinine 1.5, glucose 159, calcium 6.6, phosphorus 5.3, magnesium 2.8, total bilirubin 0.5, AST 214, ALT 160, alkaline phosphatase 55. Creatinine kinase 788. TSH 4.2, free T4 0.99. Toxicology screen positive for amphetamines, benzodiazepines, and marijuana. IMAGING: A CT scan of the head was done on 12/13/2018, the day of admission, no acute intracranial process was noted. NEUROLOGIC: Cranial nerves: Pupil and corneal [place] [address] CONSULTATION Name: MARTHANASEEM M Room: [address]#: [id number] Admission: 12/13/18 Attend Phys: Elina Mckeon MD Discharge: Date of : 77 Report #: [id number] Oculocephalic reflex is present. The patient has a cough and gag reflex. There are no spontaneous movements of the extremities. The patient has a triple flexion response with Babinski testing. In other words, the Babinski is positive bilaterally and when stimulated, she can try to attempt to pull her legs up toward her body. IMPRESSION: This patient has anoxic encephalopathy. The EEG shows a rhythm of 4-5 Hz/sec. The normal rhythm is between 8 and 12. I spoke to the patient's mother and daughter and I explained that there has most likely been an anoxic injury or lack of oxygen to the brain despite everyone's best attempts at CPR and resuscitation in general. However, it has not even been 12 hours since sedation was discontinued and the patient was rewarmed to a normal body temperature, so more time will be needed. The patient has had an initial normal CT head. I may consider repeating this tomorrow. I do not think at this point serial EEGs are going to be necessary as the patient is not seizing. The patient needs to become more responsive. This will be the best sign of whether or not she will have a meaningful recovery. I thank you for your kind referral of the patient. We will continue to follow her with you. <ELECTRONICALLY SIGNED> By: Jennifer Steele DO 12/17/18 1506 1451 1932Rharish Steele DO /juan
--- NOTE | 2018-12-17 16:53 | NUR ---
PT HAD EPISODE OF TACHYCARDIA, TACHYPNEA, O2 SATURATION IN LOW 80'S. PT WAS VERY DIAPHORETIC AND MOVING BACK AND FORTH WITH EYES OPEN. HR UP TO 130s AND VERY DYSRHYTHMIC. 5MG OF VERSED GIVEN AND PATIENT'S HR CAME DOWN. CALLED TO PULMONARY MD AND NEW ORDERS FOR PRECEDEX. PT'S HEART RATE SINCE HAS BEEN BRADYCARDIC 40-50'S. THIS INFORMATION WAS CALLED TO HIMS MD WELL.
--- NOTE | 2018-12-17 18:50 | NUR ---
PT ASSESSMENT CHARTED. LEVOPHED DRIP OFF AT THIS TIME. PT ON PRECEDES DRIP AND TOLERATING. OTHER THAN EPISODE MENTIONED IN LAST NOTE, PT HAS REMAINED BRADYCARDIC WITH RATES LOW 41 THIS SHIFT. Q2H TURNS FOR COMFORT. SUCTIONING SMALL AMOUNTS OF BLOOD FROM ET TUBE. MRSA SWAB SENT TO LAB. METOPROLOL HELD DUE TO RATE.
[2018-12-18] VITALS (50 sets, daily range): BP systolic 89–177; BP diastolic 53–109
[2018-12-18 04:48] LABS: ABSOLUTE LYMPHOCYTES 0.9 thou/uL (0.8-5.3); ABSOLUTE MONOCYTES 0.5 thou/uL (0.0-1.2); ABSOLUTE NEUTROPHILS 13.5 thou/uL (1.6-8.1); BASOPHILS 0.1 %; HEMATOCRIT 25.2 % (37.0-47.0); HEMOGLOBIN 8.3 gm/dL (12.0-15.0); LYMPHOCYTES 6.2 %; MCH 30.2 pg (26.0-34.0); MCHC 32.8 g/dL (28.0-37.0); MCV 91.8 fL (80.0-100.0); MONOCYTES 3.2 %; MPV 8.6 fl. (7.2-11.1); NUCLEATED RBCS 0 /100WBC; PLATELET COUNT* 176 thou/uL (150-400); POLYS 90.5 %; RBC 2.75 mil/uL (4.20-5.00); WBC 14.9 thou/uL (4.0-11.0)
[2018-12-18 05:25] LABS: ALBUMIN 2.3 g/dL (3.4-5.0); CALCIUM 7.7 mg/dL (8.5-10.1); CREATININE 1.3 mg/dL (0.6-1.3); POTASSIUM 3.8 mmol/L (3.5-5.1); TOTAL BILIRUBIN 0.8 mg/dL (<0.1-1.0); TOTAL PROTEIN 4.9 g/dL (6.4-8.2)
--- NOTE | 2018-12-18 06:22 | NUR ---
HR IN 40s-50s THROUGH THE NIGHT, LOWEST HR 37. CARDIOLOGY AWARE, NO ORDERS RECEIVED. PRECEDEX TITRATED OFF, PATIENT NOW ON 80 MCG/HR FENTANYL GTT WITH PRN PROPOFOL IV PUSHES. PATIENT NOT TOLERATING SUCTIONING, TURNS, BATH. HR DOWN TO 30s FOLLOWING BATH. OPENS EYES, LIFTS LEG OFF BED AND HOLDS THEM IN THE AIR. RHYTHM SINUS ON THE MONITOR. DESATS IN HIGH 80s AND SUSTAINS IT WHEN GOING INTO BRADYCARDIC EPISODES. FIO2 UP TO 75%. NOT OVERBREATHING THE VENTILATOR. TUBE FEED RUNNING AT 35ML/HR, TOLERATING WELL. Q2 TURNS TILL 0200, SEMI FOWLERS SINCE. MODERATE IN AMOUNT, BLOODY VAGINAL DISCHARGE NOTED.
[2018-12-18 06:24] LABS: PCO2 33.3 mmHg (35.0-45.0); pH 7.401 (7.340-7.450)
[2018-12-18 06:26] LABS: PO2 188.8 mmHg (75.0-100.0)
--- NOTE | 2018-12-18 07:35 | CON ---
[address] [address] CONSULTATION Name: MARTHANASEEM Albert Room: [address] IN M.R.#: [id number] Admission: 12/13/18 Attend Phys: Elina Mckeon MD Discharge: Date of : 77 Report #: [id number] THIS REPORT FOR: //name// CC: Chad Pena FAM unknown Elina Mckeon DATE OF SERVICE: 12/15/2018 ATTENDING PHYSICIAN: Dr. Mckeon. REASON FOR EVALUATION: Post-cardiac arrest complicated by aspiration pneumonitis, respiratory failure. HISTORY OF PRESENT ILLNESS: Chart reviewed, patient examined. This is a 43-year-old woman that was witnessed cardiac arrest outside the hospital who underwent resuscitation including CPR, was ultimately revived. She was transferred emergently, had a second code, I believe. While here, she did undergo cardiac catheterization, which showed poor EF of 25-30%, although no evidence of stenotic arterial disease. She is seen in the ICU. She is on mechanical ventilatory support. Imaging shows bilateral infiltrates. There is moderate degree of tracheal pulmonary secretions. She has been undergoing Code ICE procedure. She was empirically started on therapy with vancomycin, piperacillin and tazobactam. Through the review of the chart there was no evidence of previous illness in terms of fevers, etc. per her lack of complaints to such. Additional studies include CT of the chest, which showed no evidence of pulmonary embolus. She did have evidence of polysubstance use via her drug test including methamphetamine and marijuana. She is currently nonresponsive on the vent. ALLERGIES: None. CURRENT MEDICATIONS: Include amiodarone, spironolactone, lansoprazole, atorvastatin, norepinephrine, vancomycin, Zosyn, methylprednisolone, sliding scale insulin, enoxaparin, p.r.n. analgesics and antiemetics. PAST MEDICAL HISTORY: None known. FAMILY HISTORY: Noncontributory. REVIEW OF SYSTEMS: Not obtainable. PHYSICAL EXAMINATION: GENERAL: She is sedated, maintained on ____ support. She is nonresponsive. ET tube in place. HEENT: [place] [address] CONSULTATION Name: NASEEM THOMAS Albert Room: [address] IN [facility]#: [id number] Admission: 12/13/18 Attend Phys: Elina Mckeon MD Discharge: Date of : 77 Report #: [id number] NECK: Supple. LUNGS: Few scattered coarse breath sounds. HEART: Borderline tachycardic, regular. I do not appreciate murmur. ABDOMEN: Soft. There are no peritoneal signs. GENITOURINARY: There is no vaginal drainage. RECTAL: Deferred. LABORATORY DATA: Chest x-ray: Diffuse infiltrates. Initially ABGs, pO2 of 57 on FiO2 of 100%. test was negative. Electrolytes: Sodium 144, potassium 3.8, chloride , bicarbonate is 14, anion gap of 22, BUN and creatinine 9 and 1.2, glucose of 300. AST of 156, ALT of 145. Albumin of 2.1. CBC: White count of 8.2, H and H 10.6 and 34.3, platelets of 209, did have marked lymphocytopenia relative to neutrophils of 5000. Troponin elevated at 0.33, peaked at 0.95. Lactic acid initially 8.2; serial 4.0, 4.7, 3.1. Echo, EF of 20-25%. Blood cultures are sterile thus far. TSH elevated at 4.222. Electrolytes from this morning, sodium 139, potassium 3.9, chloride 106, bicarb is 23, ion gap of 10, BUN and creatinine 23 and 1.5. AST of 214, ALT of 160, total bilirubin of 0.5. CBC: White count of 21.6, H and H 12.1 and 36.7, platelets of 271 with neutrophilia of 19,400. ASSESSMENT AND PLAN: Post-cardiac arrest complicated by multiorgan dysfunction including respiratory failure. Certainly appears to have aspirated too with a combination antimicrobial therapy. It is not entirely clear as to what led to this, does apparently have a history of drug use and perhaps could contribute. LFTs are elevated I think likely secondary to the anoxia. We will check an ultrasound to exclude biliary tract issue. Should have reasonable coverage for lungs as well as intra-abdominal. Overall prognosis appears quite guarded. <ELECTRONICALLY SIGNED> By: Ian Longoria MD 12/18/18 0735 0858 0255Ian Longoria MD /nt
--- NOTE | 2018-12-18 14:52 | NUR ---
CALLED TO ICU TO RETRACT IJ CENTRAL LINE. PER CURRENT X-RAY INTERPRETATION LINE IS 5-6CM DEEP. LINE RETRACTED 5CM PER PROTOCOL. LEAVING 14CM INTERNAL AND 11CM EXTERNAL. NEW DRESSING AND STATLOCK APPLIED. PT TOLERATED WELL. REPORT TO HYACINTH VALENCIA RN.
--- NOTE | 2018-12-18 16:41 | EKG ---
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[facility] : 1975 Requested By: Gaby Dutton Order Number: [id number] Reading MD: Chino Barksdale Measurements Intervals [place] Rate: 126 P: 82 GA: 68 QRS: 56 QRSD: 92 T: 124 QT: 377 QTc: 546 Interpretive Statements Sinus tachycardia Probable left atrial enlargement Low voltage, extremity and precordial leads Anteroseptal infarct, old Abnrm T, probable ischemia, anterolateral lds Prolonged QT interval Baseline wander in lead(s) V4,V5 Compared to ECG 12/15/2018 07:57:45 T-wave abnormality no longer present Possible ischemia still present Electronically Signed On 12-18-2018 16:41:09 CDT by Chino Barksdale [email or web address] <ELECTRONICALLY SIGNED> By: Chino Barksdale MD, [facility] 12/18/18 1641 07 180 Chino Barksdale MD, [facility] /EPI
--- NOTE | 2018-12-18 16:42 | EKG ---
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1975 Requested By: Rochelle Sweet Order Number: [id number] Reading MD: Chino Barksdale Measurements Intervals [place] Rate: 86 P: 61 TX: 165 QRS: 9 QRSD: 113 T: 239 QT: 530 QTc: 634 Interpretive Statements Sinus rhythm Left atrial enlargement Borderline intraventricular conduction delay Low voltage, extremity and precordial leads Abnormal T, consider ischemia, diffuse leads Borderline ST elevation, lateral leads Prolonged QT interval Compared to ECG 12/15/2018 07:57:45 ST (T wave) deviation now present T-wave abnormality still present Possible ischemia still present Electronically Signed On 12-18-2018 16:42:28 CDT by Chino Barksdale [email or web address] <ELECTRONICALLY SIGNED> By: Chino Barksdale MD, FAC 12/18/18 1642 30 30 Chino Barksdale MD, [facility] /EPI
--- NOTE | 2018-12-18 16:45 | EKG ---
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1975 Requested By: Elina Mckeon Order Number: [id number] Reading MD: Chino Barksdale Measurements Intervals [place] Rate: 99 P: 66 CT: 149 QRS: 0 QRSD: 105 T: 238 QT: 492 QTc: 632 Interpretive Statements Sinus rhythm Left atrial enlargement Low voltage, extremity and precordial leads Abnrm T, probable ischemia, anterolateral lds Prolonged QT interval Compared to ECG 12/15/2018 07:57:45 Possible ischemia still present Electronically Signed On 12-18-2018 16:44:59 CDT by Chino Barksdale [email or web address] <ELECTRONICALLY SIGNED> By: Chino Barksdale MD, FAC 12/18/18 1644 15 15 Chino Barksdale MD, [facility] /EPI
--- NOTE | 2018-12-18 17:59 | NUR ---
/ Days: Patient cleared by Cardiology and Pulm to take to MRI, completed at 1330 today. EEG repeated this morning, pending results. Hospitalist to hold a family conference on patient ongoing care tomorrow. Patient wean down to 50mcg/hr from 80. PRN fentanly bolus x2 for MRI. B/P remained stable off levophed.
[2018-12-19] VITALS (22 sets, daily range): BP systolic 111–173; BP diastolic 61–106
[2018-12-19 05:36] LABS: HEMATOCRIT 24.7 % (37.0-47.0); HEMOGLOBIN 8.2 gm/dL (12.0-15.0); MCH 30.5 pg (26.0-34.0); MCHC 33.3 g/dL (28.0-37.0); MCV 91.6 fL (80.0-100.0); MPV 9.3 fl. (7.2-11.1); NUCLEATED RBCS 0 /100WBC; PLATELET COUNT* 195 thou/uL (150-400); RDW-CV 13.9 % (10.5-14.5); WBC 13.7 thou/uL (4.0-11.0)
--- NOTE | 2018-12-19 05:42 | NUR ---
VITALS STABLE, AFEBRILE. PATIENT ON 60MCG/HR FENTANYL GTT WITH PRN VERSED FOR SEDATION. OPENS EYES WHEN NOT FULLY SEDATED WITH SLIGHT INCREMENT IN HR. TOLERATED TURNS AND BATH THIS SHIFT. DIAPHORETIC, NO FEVER. OTHERWISE UNEVENTFUL NIGHT. Q2 TURNS FOR SKIN INTEGRITY.
[2018-12-19 05:59] LABS: ALBUMIN 2.4 g/dL (3.4-5.0); CALCIUM 8.1 mg/dL (8.5-10.1); CREATININE 1.1 mg/dL (0.6-1.3); MAGNESIUM 1.9 mg/dL (1.8-2.4); POTASSIUM 4.1 mmol/L (3.5-5.1); TOTAL BILIRUBIN 0.7 mg/dL (<0.1-1.0); TOTAL PROTEIN 5.2 g/dL (6.4-8.2)
[2018-12-19 06:17] LABS: ABSOLUTE LYMPHOCYTES 0.8 thou/uL (0.8-5.3); ABSOLUTE MONOCYTES 0.8 thou/uL (0.0-1.2); ABSOLUTE NEUTROPHILS 12.1 thou/uL (1.6-8.1); ANISOCYTOSIS 1+; PLATELET ESTIMATE ADEQUATE; POIKILOCYTOSIS 1+
--- NOTE | 2018-12-19 10:45 | NUR ---
PT REMAINS ON VENT. SPOKE WITH FAMILY AT [facility], THEY HAVE NO QUESTIONS ABOUT PLAN OF CARE. CASE MGT WILL CONTINUE TO FOLLOW.
--- NOTE | 2018-12-19 18:25 | NUR ---
PT ASSESSMENT CHARTED. VSS THROUGHOUT SHIFT. PT IS BRADYCARDIC WITH HR DROPPING INTO 40'S. WHEN PATIENT HAS COUGHING FIT SHE BECOMES TACHYCARDIC, TACHYPNIC, AND HAS FREQUENT PVC'S/BIGEMINY. PT RESPONDS WELL TO PRN VERSED WHEN THIS HAPPENS. PT ALERT MOST OF THE DAY BUT IS NOT TRACKING. MINIMAL RESPONSE TO PAIN. GAG/COUGH +. PATIENT RECEIVED A BATH. MTN DID INITIAL ASSESSMENT ON PATIENT. INSTRUCTED TO CALL IF FAMILY DECIDES FOR COMFORT CARE OR IF THEIR IS NEUROLOGICAL DECLINE.
[2018-12-20] VITALS (41 sets, daily range): BP systolic 131–194; BP diastolic 66–118
[2018-12-20 05:34] LABS: CALCIUM 8.6 mg/dL (8.5-10.1); CREATININE 1.1 mg/dL (0.6-1.3); POTASSIUM 4.1 mmol/L (3.5-5.1)
--- NOTE | 2018-12-20 07:08 | NUR ---
VITALS STABLE, AFEBRILE. FENTANYL GTT WITH VERSED PUSH X1 FOR SEDATION. TF RUNNING AT 35ML/HR WITH MINIMAL RESIDUALS. UOP 550 CC. FAMILY AT BEDSIDE. SPOKE WITH BOYFRIEND ABOUT CONFERENCE YESTERDAY AFTERNOON. VISIBLY UPSET, REPORTS WHAT THEY ARE BEING TOLD IS INCONSISTENT WITH WHAT THEY WERE MADE TO BELIEVE BEFORE YESTERDAY. SAYS HE WOULD LIKE TO SEE MRI RESULTS. DOES NOT SEEM TO COMPREHEND SEVERITY OF PATIENT CLINICAL STATUS. ASKS WHAT WOULD HAPPEN IF "WE PULL ALL THE TUBES OUT". ASKS IF THIS IS WHAT IT MEANS TO BE ON LIFE SUPPORT. EDUCATED PATIENT ON PATIENT STATUS. REPORTS HE WILL BE BACK TO SPEAK WITH PROVIDER TODAY. OTHERWISE UNEVENTFUL NIGHT. Q2 TURNS FOR SKIN INTEGRITY.
[2018-12-20 08:09] LABS: BE -3.2 mmol/L (-2 to +3); PCO2 32.1 mmHg (35.0-45.0); pH 7.425 (7.340-7.450)
--- NOTE | 2018-12-20 10:45 | NUR ---
SPOKE WITH SISTER IN THE [place], AUNT AND COUSIN WERE WITH HER. SHE SAID HER MOTHER WOULD BE HERE SOON AND THEY WOULD LIKE TO TALK WITH DR. GUERRERO AGAIN. DR. GUERRERO SAID HE WAS AVAILABLE ANYTIME TO TALK WITH THEM. SISTER SAID THEY ARE JUST TRYING TO FIGURE OUT WHAT TO DO, SHE STATES HER SISTER WOULDN'T WANT TO BE KEPT ALIVE ON MACHINES BUT THEY ARE STRUGGLING WITH MAKING A DECISION ABOUT CONTINUING CARE OR NOT. PROVIDED SUPPORT. WILL CONTINUE TO FOLLOW.
--- NOTE | 2018-12-20 13:25 | 2DMMODE ---
[facility] [address] [facility] [place] [address] 2 D/M-MODE ECHOCARDIOGRAM Name: MARTHANASEEM M Room: [address] ADM IN .R#: [id number] Admission: 12/13/18 Attend Phys: Elina Mckeon MD Discharge: Date of : 77 Date of Service: 12/20/18 1325 Report #: [id number] THIS REPORT FOR: //name// APPROVED REPORT Study performed: 12/20/2018 09:38:46 EXAM: limited 2D Patient Location: In-Patient Room #: [facility] Status: routine BSA: 1.71 HR: 56 bpm BP: 138/74 mmHg Rhythm: NSR Other Information Study Quality: Excellent Indications Arrhythmia Left Ventricle The left ventricle is normal size. There is global hypokinesis of the left ventricle. There is normal left ventricular wall thickness. Left ventricular ejection fraction is severely decreased. LVEF is 25-30%. Right Ventricle The right ventricle is normal size. The right ventricular systolic function is normal. Atria Left atrium is mildly dilated. The right atrium size is normal. Aortic Valve The aortic valve is normal in structure. Mitral Valve The mitral valve is normal in structure. Tricuspid Valve The tricuspid valve is normal in structure. Pulmonic Valve [address] [place] [address] 2 D/M-MODE ECHOCARDIOGRAM Name: NASEEM THOMAS Room: [address] IN ..#: [id number] Admission: 12/13/18 Attend Phys: Elina Mckeon MD Discharge: Date of : 77 Date of Service: 12/20/18 132 Report #: [id number] Pulmonic valve is not visualized. Great Vessels The aortic root is normal in size. Pericardium There is no pericardial effusion. <Conclusion> LVEF is 25-30%. Left atrium is mildly dilated. <ELECTRONICALLY SIGNED> By: Chad Pena MD, [facility] 12/20/181324 24 24 Chad Pena MD, FACC /INF
--- NOTE | 2018-12-20 14:34 | EEG ---
[address] [address] EEG STUDY REPORT Name: NASEEM THOMAS Room: [address] IN .R.#: [id number] Admission: 12/13/18 Attend Phys: Elina Mckeon MD Discharge: Date of : 77 Report #: [id number] THIS REPORT FOR: //name// CC: Chad Pena FAM unknown Elina Mckeon DATE OF SERVICE: 12/18/2018 REASON FOR STUDY: This patient is being evaluated for hypoxic encephalopathy. INTERPRETATION: EEG was done by placing the electrode by standard 10-20 system of electrode placement. Both referential and sequential montages were used for recording. Background activity in this patient's EEG is about 4-5 Hz and 30 microvolt. Photic stimulation was unremarkable. Throughout the record, no active epileptiform activity was noticed. IMPRESSION: This patient's study is consistent with severe encephalopathy. However, the finding is nonspecific and can occur in multiple other etiologies. Therefore, clinical correlation is recommended. <ELECTRONICALLY SIGNED> By: Josue Kaplan MD 12/20/18 1434 03 2117Josue Kaplan MD /nt
--- NOTE | 2018-12-20 19:46 | NUR ---
PT ASSESSMENT CHARTED. VSS THROUGHOUT SHIFT. PT REMAINS BRADYCARDIC WITH RATES 40-50 BUT BECOMES TACHYCARDIC WHEN OVERSTIMULATED OR COUGHING/GAGING. OG FOUND ON PATIENTS CHEST THIS MORNING UPON INITIAL ASSESSMENT. NEW OG PLACED AND XRAY FOR CONFIRMATION OF PLACEMENT. PATIENT DOESN'T APPEAR TO BE IN ANY PAIN. NEURO RESPONSE CHARTED. PT MOVING TONGUE AND GAGING A LOT MORE. PRN VERSED GIVEN FOR AGGITATION X1. CARE CONFERENCE ARRANGED FOR TOMORROW MORNING FOR FAMILY TO MEET WITH NEUROLOGY, PULMONARY, CARDIOLOGY AND HIMS TO HAVE QUESTIONS ANSWERED. FAMILY CONCERNED THAT THEY ARE GETTING DIFFERENT INFORMATION FROM DIFFERENT DOCTORS. DAVID MATTHEWS HAS BEEN UPDATED AND WILL BE AVAILABLE DURING THIS TIME. FAMILY AGREES AND WILL BE HERE AT 0930. NO OTHER CHANGES.
[2018-12-21] VITALS (23 sets, daily range): BP systolic 110–200; BP diastolic 65–128
[2018-12-21 04:37] LABS: ABSOLUTE LYMPHOCYTES 0.4 thou/uL (0.8-5.3); ABSOLUTE MONOCYTES 0.7 thou/uL (0.0-1.2); ABSOLUTE NEUTROPHILS 15.1 thou/uL (1.6-8.1); BASOPHILS 0.1 %; HEMOGLOBIN 7.9 gm/dL (12.0-15.0); LYMPHOCYTES 2.6 %; MCH 30.4 pg (26.0-34.0); MCV 92.1 fL (80.0-100.0); MONOCYTES 4.4 %; MPV 8.5 fl. (7.2-11.1); NUCLEATED RBCS 0 /100WBC; POLYS 92.9 %; RBC 2.61 mil/uL (4.20-5.00); RDW-CV 14.2 % (10.5-14.5); WBC 16.3 thou/uL (4.0-11.0)
[2018-12-21 04:38] LABS: PLATELET COUNT* 277 thou/uL (150-400)
[2018-12-21 04:52] LABS: ALBUMIN 2.6 g/dL (3.4-5.0); CALCIUM 8.1 mg/dL (8.5-10.1); CREATININE 1.1 mg/dL (0.6-1.3); MAGNESIUM 1.7 mg/dL (1.8-2.4); TOTAL PROTEIN 5.4 g/dL (6.4-8.2)
--- NOTE | 2018-12-21 06:30 | NUR ---
Pt ran low grade fever during first few hours of shift (100.3 and 99.8). This am T 97.9. Pt had 4 episodes of what appeared to be anxiety/agitation. Pt became tachycardic, tachypneic, and diaphoretic; HR 120s-130s, RR 30s, and BP would be elevated. Pt also appears restless during these episodes, moving arms, turning head side to side, and coughing and/or altering breathing to cause ventilator to alarm for "volume not delivered." Midazolam given 3X, which would bring the pt back to a calm state with RR, HR, and BP returning to normal. Large amount of serous drainage noted from R groin, which is site of previous art line. Gauze with tegaderm placed to site. Gauze saturated, so dressing reinforced with abd pad. Will continue to monitor.
--- NOTE | 2018-12-21 11:00 | NUR ---
FAMILY MEETING WITH MOTHER, SISTERS, DR. DALY, DR. GUERRERO, AND MYSELF. DR DALY AND DR. GUERRERO DISCUSSED PT'S CURRENT CONDITION AND PLAN OF CARE, DISCUSSED OPTIONS FOR ONGOING CARE. FAMILY UNDERSTANDS THAT PT'S PROGNOSIS IS GUARDED. MOTHER AND SISTERS AGREE WITH DNR STATUS. DR. DALY RECOMMENDS REPEAT MRI ON TUESDAY AND SEE WHAT THAT SHOWS. FAMILY AWARE THAT A DECISION WILL NEED TO BE MADE SOON ABOUT A TRACH. FAMILY SAID THEY KNOW FROM PREVIOUS DISCUSSIONS WITH PATIENT THAT SHE WOULD NOT WANT 'TO BE A VEGETABLE, OR LIVE OUT THE REST OF HER DAYS IN A JAIL, BARELY ABLE TO DO ANYTHING.' THEY ARE STRUGGLING WITH DECISION TO WITHDRAW CARE, THEY ARE WANTING TO GIVE HER A LITTLE MORE TIME TO SEE IF SHE SHOWS IMPROVEMENT. BOYFRIEND WAS HERE TO VISIT PT BRIEFLY THIS MORNING, BUT WAS NOT IN THE MEETING.
--- NOTE | 2018-12-21 17:21 | NUR ---
PATIENT ASSESSMENT REMAINS WITH MINIMAL CHANGES. PATIENT MORE RESTLESS THIS AM, ON FENTANYL GTT WITH VERSED PUSHES. PUSHES WERE REQUIRED MORE THAN ORDERED. DR GUERRERO NOTIFIED, VERSED GTT RESTARTED. PATIENT MORE CALM WITH STABLE VITAL SIGNS ON CONTINUOUS INFUSION. FAMILY MEETING HELD TODAY. FIANCE NOT PRESENT. PER FAMILY (INCLUDING MOTHER AND SISTERS) PATIENT MADE A DNR. PLAN IS TO REPEAT MRI ON TUESDAY AND TO DECIDE ABOUT FUTURE CARE PLAN FROM THAT TIME. TUBE FEEDING RESIDUALS HIGH (160) AT 1200. TUBE FEEDING HELD. RESTARTED AT 1600 AT 40 ML/HR. WATER BOLUSES GIVEN ORDERED. PATIENT OPENS EYES, DOES NOT TRACK OR FOLLOW COMMANDS. OTHERWISE, REFER TO ASSESSMENT. NO OTHER ACUTE CONCERNS NOTED.
[2018-12-22] VITALS (22 sets, daily range): BP systolic 101–160; BP diastolic 61–94
[2018-12-22 05:05] LABS: CALCIUM 7.8 mg/dL (8.5-10.1); POTASSIUM 3.7 mmol/L (3.5-5.1)
--- NOTE | 2018-12-22 07:37 | NUR ---
Pt's condition largely unchanged from previous night. Had one episode of tachycardia with restlessness/agitation this am after bath at 0345. Otherwise, the midazolam gtt in addition to the fentanyl gtt seemed to keep pt calmer. VSS. Afebrile. Continues to have large amount of serous drainage from R groin site. This am at 0715, pt's fiance requested to visit pt briefly before going to work. Inquired about pt now being DNR, and informed that the decision was made yesterday by family after care conference. He stated he knew nothing of a care conference, and appeared to be upset/angry as he left the unit. Will continue to monitor.
--- NOTE | 2018-12-22 11:38 | NUR ---
Attempted to turn off versed, 2 hours after patient heart rate jumped to 140's, RR-40+, fighting vent. Patient resedated with PRN's, Versed gtt turned back on at 2mg/hr.
--- NOTE | 2018-12-22 15:09 | NUR ---
WOUND NURSE: PER STAFF NURSE CARING FOR PATIENT TODAY, RADHA SCALE TRIGGERING WOUND NURSE CONSULT. NURSE STATES NO WOUNDS TO MANAGE.
--- NOTE | 2018-12-22 18:22 | NUR ---
6/7 Days: Unable to tolerate sedation vacation from versed only (see previous note). Fentanyl increased to 75 from 50 d/t elevated HR, RR, and fighting vent with minimal stimulation with prolong periods or returning to sedated baseline. BM x2 today. Plan to increase TF to goal if residuals stay good overnight since patient now having BM's.
[2018-12-23] VITALS (24 sets, daily range): BP systolic 104–169; BP diastolic 63–90
--- NOTE | 2018-12-23 05:59 | NUR ---
ASSUMED CARE AT 1900H.ON VENTILATOR AND SEDATION OF VERSED AND FENTANYL.NO DISTRESS NOTED.PT ON SINUS BRADICARDIA WHEN ASLEEP.DARIN STABLE THE WHOLE NIGHT.FOR MRI AND EEG ON TUESDAY.CONTINUE CARE.
--- NOTE | 2018-12-23 22:22 | EEG ---
[address] [address] EEG STUDY REPORT Name: NASEEM THOMAS Room: [address] IN .R.#: [id number] Admission: 12/13/18 Attend Phys: Elina Mckeon MD Discharge: Date of : 77 Report #: [id number] THIS REPORT FOR: //name// CC: Chad Pena FAM unknown Elina Mckeon DATE OF SERVICE: 12/21/2018 EEG: This patient is being evaluated for hypoxic encephalopathy. The background activity in this patient's EEG is about 3-4 Hz and 30 microvolt. This EEG is slow throughout the record and is pretty monotonous. Photic stimulation is unremarkable. IMPRESSION: Severely abnormal EEG consistent with a diagnosis of encephalopathy. No seizure activity was noticed. <ELECTRONICALLY SIGNED> By: Josue Kaplan MD 12/23/18 [id number] 03 [id number] Kaplan MD /nt
[2018-12-24] VITALS (22 sets, daily range): BP systolic 105–158; BP diastolic 67–91
--- NOTE | 2018-12-24 05:05 | NUR ---
ASSUMED CARE AT 1900H.STILL ON VENT AND CONTINUOUS FEEDING.ON SEDATUION WITH MODERATE AMOUNT OF BLOOD TINGED SECRETION FROM ETT.PT WAS STABLE THE WHOLE NIGHT AND NO SEIZURE NOTED.FOR MRI AND EEG ON TUESDAY TO BE ORDER BY NEUROLOGY. FROM THERE FAMILY WILL DECIDE IF TO CONTINUE DNR.CONTINUE CARE AND MONITORING.
[2018-12-24 05:18] LABS: HEMATOCRIT 22.1 % (37.0-47.0); HEMOGLOBIN 7.4 gm/dL (12.0-15.0); MCH 30.7 pg (26.0-34.0); MCHC 33.5 g/dL (28.0-37.0); MCV 91.7 fL (80.0-100.0); MPV 8.2 fl. (7.2-11.1); NUCLEATED RBCS 0 /100WBC; PLATELET COUNT* 306 thou/uL (150-400); RBC 2.41 mil/uL (4.20-5.00); RDW-CV 13.8 % (10.5-14.5); WBC 11.2 thou/uL (4.0-11.0)
[2018-12-24 05:46] LABS: CALCIUM 8.2 mg/dL (8.5-10.1); CREATININE 0.9 mg/dL (0.6-1.3); POTASSIUM 4.2 mmol/L (3.5-5.1)
[2018-12-24 06:35] LABS: ABSOLUTE LYMPHOCYTES 0.7 thou/uL (0.8-5.3); ABSOLUTE MONOCYTES 0.4 thou/uL (0.0-1.2); ABSOLUTE NEUTROPHILS 10.1 thou/uL (1.6-8.1); ATYPICAL LYMPHS 2 %; METAMYELOCYTES 2 %; PLATELET ESTIMATE ADEQUATE
[2018-12-24 09:32] LABS: BE -1.1 mmol/L (-2 to +3); PCO2 32.2 mmHg (35.0-45.0); pH 7.461 (7.340-7.450)
[2018-12-24 09:34] LABS: PO2 134.5 mmHg (75.0-100.0)
--- NOTE | 2018-12-24 14:47 | NUR ---
ASSUMED CARE OF PATIENT FROM [facility]IN [facility].AGREE WITH HIS ASSESSMENT.
--- NOTE | 2018-12-24 17:47 | NUR ---
MINIMAL PROGRESSION TOWARDS GOALS. HAS NO PURPOSEFUL MOVEMENT. RESTLESS AT TIMES.ABLE TO DO 45 VENTILATOR WEANING TRIAL WITH SEDATION ON. ON TUBE FEEDING FOR NUTRITION. MULTIPLE VISITORS. PLAN IS FOR MRI AND EEG REPEAT TOMORROW.
[2018-12-25] VITALS (24 sets, daily range): BP systolic 105–167; BP diastolic 68–107
--- NOTE | 2018-12-25 05:55 | NUR ---
VITALS WNL, AFEBRILE. PATIENT OPENS EYES AND GRIMACES SOMETIMES WITH INCREASED HR AND BP, VERSED PUSHES X2 WITH COMFORT. DOES NOT TRACK, DOES NOT FOLLOW COMMANDS. PUPILS REACT, RAISES HER HANDS BUT UNABLE TO GRASP AND IS NOT ON COMMAND. ON FENTANYL AND VERSED GTT, TUBE FEEDING AT 25ML/HR. Q2 TURNS FOR SKIN INTEGRITY. OTHERWISE UNEVENTFUL NIGHT.
--- NOTE | 2018-12-25 11:26 | NUR ---
Nutrition: Pt not toelrating TF. Goal is 50mL, it is at 25mL. BM 2 days ago. Will follow up tomorrow.
--- NOTE | 2018-12-25 16:59 | NUR ---
PATIENT ASSESSMENT REMAINS UNCHANGED. SEDATED ON VENTILATOR. TITRATED FENTNAYL TO 30 MCG/HR. VERSED REMAINS AT 2 MG/HR. REPEAT EEG AND MRI COMPLETED TODAY. PATIENT UNABLE TO SIT STILL DURING MRI, SO RESULS ARE POOR EVEN AFTER MULTIPLE ATTEMPTS. PATIENT'S FAMILY REPORTED PATIENT MISSING TWO CHAIN NECKLACES. INDEPENDENT TRADER NOTIFIED, AND WILL ATTEMPT TO SEE IF EVS CAN LOCATE IN TRASH. NO OTHER ACUTE EVENTS THIS SHIFT. NEUROLOGY TO MEET WITH FAMILY IN THE AM.
[2018-12-26] VITALS (27 sets, daily range): BP systolic 99–150; BP diastolic 57–102
[2018-12-26 05:09] LABS: ABSOLUTE EOSINOPHILS 0.1 thou/uL (0.0-0.7); ABSOLUTE LYMPHOCYTES 0.5 thou/uL (0.8-5.3); ABSOLUTE MONOCYTES 0.8 thou/uL (0.0-1.2); ABSOLUTE NEUTROPHILS 7.7 thou/uL (1.6-8.1); BASOPHILS 0.1 %; EOSINOPHILS 1.1 %; HEMATOCRIT 25.6 % (37.0-47.0); HEMOGLOBIN 9.1 gm/dL (12.0-15.0); LYMPHOCYTES 5.9 %; MCHC 35.4 g/dL (28.0-37.0); MCV 90.3 fL (80.0-100.0); MONOCYTES 8.7 %; MPV 7.7 fl. (7.2-11.1); NUCLEATED RBCS 0 /100WBC; PLATELET COUNT* 328 thou/uL (150-400); POLYS 84.2 %; RBC 2.83 mil/uL (4.20-5.00); WBC 9.1 thou/uL (4.0-11.0)
--- NOTE | 2018-12-26 05:14 | NUR ---
PT. CONTINUES TO NOT TRACK/NOTHING PURPOSEFUL. VERSED/FENTANYL GTT'S. RUNS OF TACHYCARDIA, VERSED PRN GIVEN, PT. BACK TO SR. COMPLETE BED BATH GIVEN. PT. DIAPHORETIC AT TIMES. WILL CONTINUE TO MONITOR.
[2018-12-26 06:15] LABS: ALBUMIN 2.4 g/dL (3.4-5.0); CALCIUM 8.1 mg/dL (8.5-10.1); CREATININE 0.8 mg/dL (0.6-1.3); POTASSIUM 3.9 mmol/L (3.5-5.1); TOTAL BILIRUBIN 0.8 mg/dL (<0.1-1.0); TOTAL PROTEIN 4.7 g/dL (6.4-8.2)
--- NOTE | 2018-12-26 10:33 | NUR ---
DR Waddell SPOKE WITH FAMILY, PEG TUBE PLACEMENT TOMORROW AROUND 10AM, CALLED DR CONNORS TO UPDATE HIM ON PLAN DUE TO WEANING TRAIL ORDERED FOR TOMORROW AM AROUND [address] CONNORS WOULD LIKE WEANING TRIAL DONE THIS AFTERNOON WHILE ON SEDATION IF NECESSARY AND CALL WITH ABG RESULTS. FAMILY UPDATED AND AGREE WITH PLAN.
--- NOTE | 2018-12-26 10:35 | NUR ---
SPOKE WITH MOTHER, SISTERS, AND BOYFRIEND. PLAN IS FOR PEG TOMORROW. CONTINUE WEANING TRIALS AND SEE IF PT CAN BE EXTUBATED. IF SHE IS ABLE TO BE EXTUBATED, FAMILY WILL HAVE TO HAVE DECIDED IF THEY WANT HER RE-INTUBATED OR NOT. FAMILY HAS NO QUESTIONS ABOUT PLAN OF CARE.
[2018-12-26 11:35] LABS: ABSOLUTE BASOPHILS 0.1 thou/uL (0.0-0.2); ABSOLUTE EOSINOPHILS 0.1 thou/uL (0.0-0.7); ABSOLUTE LYMPHOCYTES 0.1 thou/uL (0.8-5.3); ABSOLUTE MONOCYTES 0.4 thou/uL (0.0-1.2); BASOPHILS 1.2 %; EOSINOPHILS 0.7 %; HEMATOCRIT 27.4 % (37.0-47.0); HEMOGLOBIN 9.2 gm/dL (12.0-15.0); LYMPHOCYTES 1.4 %; MCH 30.5 pg (26.0-34.0); MCHC 33.6 g/dL (28.0-37.0); MCV 90.9 fL (80.0-100.0); MONOCYTES 4.4 %; MPV 7.5 fl. (7.2-11.1); NUCLEATED RBCS 0 /100WBC; PLATELET COUNT* 294 thou/uL (150-400); POLYS 92.3 %; RBC 3.01 mil/uL (4.20-5.00); RDW-CV 14.3 % (10.5-14.5); WBC 9.8 thou/uL (4.0-11.0)
[2018-12-26 16:28] LABS: BE -0.3 mmol/L (-2 to +3); PCO2 32.8 mmHg (35.0-45.0); pH 7.462 (7.340-7.450)
[2018-12-26 16:30] LABS: PO2 145.8 mmHg (75.0-100.0)
--- NOTE | 2018-12-26 16:46 | NUR ---
WEANING TRIAL COMPLETED AND ABG RESULTS CALLED TO DR CONNORS. PEG TUBE SCHEDULED FOR 1150 TOMORROW MORNING AND THEN WILL PROCEED WITH ORDERS FROM DR CONNORS.
--- NOTE | 2018-12-26 17:45 | NUR ---
PATIENT BECAME EXTREMELY RESTLESS AROUND 1730, THRASHING HEAD, UNABLE TO FOLLOW COMMANDS, BECAME TACHYCARDIC AND HAD TO BE SUCTIONED QUITE A BIT. VERSED PUSH GIVEN TO HELP CALM PATIENT, ESMER IN ROOM AT THE TIME OF RESTLESSNESS AND HE BECAME WORKED UP SCREAMING HELP AT THE BEDSIDE. FIANCE CALMED ONCE PATIENT CALMED WITH VERSED. SEE EMAR FOR DOSAGE AND TIME.
--- NOTE | 2018-12-26 19:36 | NUR ---
PATIENT TACHYCARDIC WITH HR BETWEEN 120-135 BPM. EYES OPEN, MOVING HEAD FROM SIDE TO SIDE. RECEIVED VERSED PUSH A COUPLE OF HOURS AGO, GAVE PATIENT ANOTHER PUSH WITH NO RELIEF. CURRENTLY ON MAX VERSED AND FENTANYL WITH HR 102. WILL TITRATE DOWN TOLERATED.
[2018-12-27] VITALS (32 sets, daily range): BP systolic 93–161; BP diastolic 58–98
--- NOTE | 2018-12-27 05:50 | NUR ---
PATIENT TITRATED DOWN ON GTTS THE NIGHT PROGRESSED, ABLE TO GET A BATH WITH NO SIGNIFICANT CHANGE IN VITALS. NPO AFTER MIDNIGHT FOR PROCEDURE THIS AM. NO BM, 1000 CC UOP. PUPILS 4-5MM THIS AM, BRISK. DOES NOT FOLLOW COMMANDS BUT MOVES EXTREMITIES AND HEAD, ESPECIALLY WHEN IN STRESS. GRIMACES WHEN NOT FULLY SEDATED. OTHERWISE UNEVENTFUL NIGHT. Q2 TURNS FOR SKIN INTEGRITY.
[2018-12-27 10:02] LABS: CALCIUM 8.1 mg/dL (8.5-10.1); CREATININE 0.8 mg/dL (0.6-1.3); POTASSIUM 3.5 mmol/L (3.5-5.1)
--- NOTE | 2018-12-27 11:10 | NUR ---
WOUND CARE NURSE - PATIENT PREVIOUSLY SEEN ON 12/22/18 FOR LOW RADHA SCORE, WITH NO SKIN BREAKDOWN NOTED. SHE REMAINS ON VENTILATOR, DOES OPEN EYES, BUT SEDATED. DISCUSSED WITH NURSE, ERIK, WHO REPORTS THAT SHE WAS JUST CLEANED UP AND REPOSITIONED AFTER INCONTINENT OF STOOL, WITH SOME MILD BLANCHABLE ERYTHEMA, BUT NO BREAKDOWN. BILATERAL PRAFO BOOTS ON, HEELS INTACT WITH NO ERYTHEMA. CONTINUE REPOSITIONING, SKIN CARE & PRESSURE ULCER PREVENTION. WOUND CARE TEAM WILL FOLLOW-UP PRN, IF NEW SKIN ISSUES DEVELOP.
--- NOTE | 2018-12-27 12:39 | NUR ---
12/27: PEG PLACEMENT AT BEDSIDE. 6MG OF VERSED GIVEN IN 2MG INCREMENTS AT 1118, 1130, AND 1136. 50MCG OF FENTANLY AT 1134 AND 1150. PATIENT TO BE NPO FOR 4 HOURS THEN CLEAR FLUSHES. MEDS OK WITH FLUSH. NO TF UNTIL TOMORROW PER DR. RUSH.
--- NOTE | 2018-12-27 13:00 | NUR ---
LENGTHY DISCUSSION WITH MOTHER AND TWO SISTERS, REGARDING ON-GOING PLAN OF CARE. PEG TUBE PLACED TODAY, PLAN IS TO WORK ON SEEING IF PT CAN BE EXTUBATED. MOTHER AWARE THAT IF PT CAN BE EXTUBATED, DECISION WILL NEED TO HAVE BEEN MADE ABOUT WHETHER TO RE-INTUBATE PT OR NOT. ANSWERED MOTHER'S QUESTIONS REGARDING CARE OPTIONS. MOTHER HAS MY PHONE NUMBER AND SHE KNOWS SHE CAN ALL IF SHE HAS QUESTIONS OR WANTS TO TALK FURTHER.
--- NOTE | 2018-12-27 18:00 | EEG ---
[address] [address] EEG STUDY REPORT Name: NASEEM THOMAS Room: [address] IN ..#: [id number] Admission: 12/13/18 Attend Phys: Elina Mckeon MD Discharge: Date of : 77 Report #: [id number] THIS REPORT FOR: //name// CC: Chad Pena FAM unknown Elina Mckeon DATE OF SERVICE: 12/25/2018 This patient is being evaluated after cardiac arrest. Background activity in this patient's EEG is about 6 Hz and 30 microvolt. Photic stimulation is unremarkable. EEG was done while the patient was sedated, because she gets agitated without sedation. The photic stimulation was unremarkable. IMPRESSION: The patient's EEG is still abnormal and consistent with hypoxic encephalopathy. However, EEG does appear to have improved slightly since last time. <ELECTRONICALLY SIGNED> By: Josue Kaplan MD 12/27/18 1800 1215 [id number] Kaplan MD /nt
--- NOTE | 2018-12-27 18:05 | NUR ---
12/27 Days: PEG placed around noon. Flushed well 4 hours post, initiated ativan 2mg through peg. Unfortunately patient seems to be doing some "storming" starting around 1530. Patient tachycardic in the 130's, b/p elevated to 160's, increases RR, significant increase in posturing and continueous rotation of head back and forth. She also became diaphorectic. Neuro notified. Pulm called and sedation increased. Now 1800 and seems to begining to slow down after sedation increases and multiple PRN pushes. Will attempt to wean sedation back down if and when this episode passess. Per am report patient had same type of event from roughly 1830 to 10pm last night 12/27. TF not to be restarted until tomorrow moring as long as PEG is functioning fine.
[2018-12-27 19:02] LABS: CALCIUM 8.2 mg/dL (8.5-10.1); CREATININE 0.8 mg/dL (0.6-1.3)
[2018-12-28] VITALS (24 sets, daily range): BP systolic 101–162; BP diastolic 58–105
[2018-12-28 04:29] LABS: CALCIUM 8.6 mg/dL (8.5-10.1); CREATININE 0.7 mg/dL (0.6-1.3); MAGNESIUM 1.9 mg/dL (1.8-2.4); POTASSIUM 3.8 mmol/L (3.5-5.1)
--- NOTE | 2018-12-28 04:52 | NUR ---
PT. REMAINS SEDATED ON VENTILATOR, SEDATION DECERASED TO 5MG/HR VERSED AND 50MCG/HR FENTANYL. PT. STILL OPENS HER EYES BUT DOES NOT TRACK. RESTRAINTS REMAIN OFF. TTT SCHEDULED FOR 0800. WILL CONTINUE TO MONITOR.
[2018-12-28 10:07] LABS: BE -0.5 mmol/L (-2 to +3); PCO2 32.4 mmHg (35.0-45.0); pH 7.467 (7.340-7.450)
[2018-12-28 10:09] LABS: PO2 147.8 mmHg (75.0-100.0)
--- NOTE | 2018-12-28 19:00 | NUR ---
PT ASSESSMENT CHARTED. VSS THROUGHOUT SHIFT. AFTER WEANING TRIAL PATIENT'S SEDATION RESTARTED. NO ANXIETY EPISODES NOTED TODAY. PLAN FOR TRACH POSSIBLY ON TUESDAY WITH DR. ARCEO. NO OTHER CHANGES.
[2018-12-29] VITALS (20 sets, daily range): BP systolic 96–155; BP diastolic 52–107
--- NOTE | 2018-12-29 03:51 | NUR ---
PT. MORE ALERT/RESTLESS, MOVING LEGS THROUGHOUT SHIFT. IS STILL NOT TRACKING WITH EYES, VERY SENSITIVE TO STIMULI. PRN VERSED/FENTANYL GIVEN FOR EPISODES OF RESTLESSNESS/TACHYCARDIA/HTN/DIAPHORETIC. VERSED GTT/FENT GTT'S REMAIN INFUSING. PLAN TO GET TRACHEOSTOMY ON MONDAY 01/01- TO COME TO [facility] FOR PROCEDURE. AFEBRILE. SR/TACHY W/ PVC'S. WILL CONTINUE TO MONITOR.
--- NOTE | 2018-12-29 06:00 | NUR ---
PT. TRANSFERRED TO LOW AIRLOSS MATTRESS BED.
--- NOTE | 2018-12-29 12:29 | NUR ---
MUKESH attending ICU rounds at 10 am. Nurse reported pt receiving trach on Tuesday, no changes as of this time. Family continuing to request full care/treatment.
--- NOTE | 2018-12-29 17:29 | NUR ---
PATIENT ON VENT SUPPORT, SETTINGS UNCHANGED, TOLERATED WELL. VSS. AGITATED AT TIMES. SEDATION CONTD WITH FENTANYL AT 50 AND VERSED TITRATED DOWN TO 1 MG/HR. TOLERATING TUBE FEEDS, RUNNING AT GOAL RATE 50 MLS/HR, 200 MLS WATER BOLUS Q6H. REPOSITIONING AND ORAL CARE Q2H.
[2018-12-30] VITALS (16 sets, daily range): BP systolic 120–169; BP diastolic 78–112
--- NOTE | 2018-12-30 07:17 | NUR ---
Pt restless, body stiffens up frequently; requires frequent repositioning up in bed. HR 110s-130s at times with increased restlessness/agitation. Versed IVP given twice overnight with little if any observable therapeutic effect. Versed gtt now running at 3 mg/hr; fentanyl remains at 50 mcg/hr. Tolerating TF well. No BM overnight. Will continue to monitor.
--- NOTE | 2018-12-30 18:34 | NUR ---
NO ACUTE CHANGES THROUGHOUT SHIFT. PATIENT REMAINS RESTLESS AND MINIMALLY SEDATED, BUT VITALS WNL. PATIENT AWAITING TRACH PLACEMENT ON TUESDAY BY DR DRISCOLL.
[2018-12-31] VITALS (21 sets, daily range): BP systolic 89–160; BP diastolic 51–96
[2018-12-31 05:46] LABS: HEMATOCRIT 21.9 % (37.0-47.0); HEMOGLOBIN 7.6 gm/dL (12.0-15.0); MCH 31.2 pg (26.0-34.0); MCHC 34.4 g/dL (28.0-37.0); MCV 90.7 fL (80.0-100.0); MPV 7.8 fl. (7.2-11.1); RBC 2.42 mil/uL (4.20-5.00); RDW-CV 14.7 % (10.5-14.5); WBC 8.4 thou/uL (4.0-11.0)
[2018-12-31 05:56] LABS: INR 1.1; PROTIME 10.9 Seconds (9.20-11.50)
[2018-12-31 06:15] LABS: CALCIUM 8.3 mg/dL (8.5-10.1); CREATININE 0.7 mg/dL (0.6-1.3); POTASSIUM 3.3 mmol/L (3.5-5.1)
--- NOTE | 2018-12-31 06:24 | NUR ---
ASSUMED CARE AT 1910H.PT WAS RESTLESS,ALWAYS MOVING HER HEAD.ON VENT AND VERSED AND FENTANYL INFUSION.NO DISTRES NOTED.NO EPISODE OF SEIZURE.CONTINUE MONITORNING AND TOWARDS GOALS.FOR TRACHEOSTOMY ON TUESDAY.
--- NOTE | 2018-12-31 17:53 | NUR ---
NO NEW CONCERNS NOTED. POTASSIUM AND MAGNESIUM REPLACED. TRACHEOSTOMY PLACEMENT TOMORROW.
[2018-12-31 20:31] LABS: MAGNESIUM 1.8 mg/dL (1.8-2.4); POTASSIUM 4.7 mmol/L (3.5-5.1)
[2019-01-01] VITALS (38 sets, daily range): BP systolic 95–160; BP diastolic 60–102
--- NOTE | 2019-01-01 01:47 | NUR ---
ASSUMED CARE AT 1900H.PT WAS ASLEEP.STILL ON VENT WITH FIO2-30% AND ON SEDATION.PT BECAME RESTLESS AGAIN AT 2200H, SECURE VENT TUBINGS WELL.AT MIDNIGHT, WITH 450ML RESIDUAL ON GASTROSTOMY.FEEDING HOLD AND CHECKED AT 0100,STILL WITH 300ML RESIDUAL.FEEDING STOP AND TO RECHECK.
[2019-01-01 04:53] LABS: HEMATOCRIT 23.5 % (37.0-47.0); HEMOGLOBIN 7.8 gm/dL (12.0-15.0); MCH 30.7 pg (26.0-34.0); MCHC 33.4 g/dL (28.0-37.0); MCV 91.8 fL (80.0-100.0); MPV 7.6 fl. (7.2-11.1); RBC 2.56 mil/uL (4.20-5.00); RDW-CV 14.7 % (10.5-14.5); WBC 9.1 thou/uL (4.0-11.0)
[2019-01-01 05:01] LABS: CALCIUM 8.3 mg/dL (8.5-10.1); CREATININE 0.8 mg/dL (0.6-1.3); MAGNESIUM 2.3 mg/dL (1.8-2.4); POTASSIUM 3.8 mmol/L (3.5-5.1)
[2019-01-01 05:02] LABS: PROTIME 10.6 Seconds (9.20-11.50)
--- NOTE | 2019-01-01 06:30 | NUR ---
PT IS ASLEEP.NO FEVER.STILL WITH 250 RESIDUAL AT 4AM.FOR TRACHEOSTOMY TODAY AND CONSENT TO BE ACQUIRE.
--- NOTE | 2019-01-01 08:49 | NUR ---
UPON ARRIVAL PT ON FENTANLY OF 70 MCG/HR AND VERSED AT 3MG/HOUR. VSS. AFEBRIE. PT OPENING EYES. MOVING RIGHT ARM. CALM.
--- NOTE | 2019-01-01 10:00 | NUR ---
TRACH TO BE PLACED TODAY, SPOKE WITH MOTHER AND SISTER MULTIPLE TIMES LAST WEEK THEY TRIED TO DECIDE WHETHER TO PLACE TRACH OR NOT. ULTIMATELY THEY DECIDED THEY NEEDED TO GIVE PT MORE TIME TO SEE WHAT HAPPENS. MOTHER AND PT'S TWO SISTERS ARE IN AGREEMENT TO PROCEED WITH TRACH.
--- NOTE | 2019-01-01 17:30 | NUR ---
PT HAS HAD SMALL AMOUNT OF BLOOD DRAINAGE FROM TRACH TUBE. 4X4'S CHANGED ONCE. TRACH STRAPS APPLIED TO TRACH AND AROUND NECK. PT AFEBRILE. SEDATION VACATION PREFORMED AND TOLERATED. TUBE FEEDING RESTARTED AT 10ML / HOUR.
--- NOTE | 2019-01-01 19:28 | NUR ---
PER DR KIRAN PACKING IN NOSE TO STAY IN PLACE FOR 48 HOURS. CHEST XRAY FOR ET TUBE READ TO PULMONARY AND ET TUBE IS IN CORRECT PLACE. AFFARIN ORDERED FOR WHEN PACKING TAKEN OUT.
[2019-01-02] VITALS (25 sets, daily range): BP systolic 111–174; BP diastolic 71–103
--- NOTE | 2019-01-02 07:01 | NUR ---
PT STABLE WITH NO BLEEDING.STILL ON VENT AND CONTINUES FEEDING.NOTED PT ALWAYS PASSING GAS.NO SEIZURE NOTED.
[2019-01-02 12:36] LABS: HEMATOCRIT 26.8 % (37.0-47.0); HEMOGLOBIN 9.4 gm/dL (12.0-15.0); MCH 31.7 pg (26.0-34.0); MCHC 34.9 g/dL (28.0-37.0); MCV 90.9 fL (80.0-100.0); MPV 7.4 fl. (7.2-11.1); NUCLEATED RBCS 0 /100WBC; PLATELET COUNT* 285 thou/uL (150-400); RBC 2.95 mil/uL (4.20-5.00); RDW-CV 14.7 % (10.5-14.5); WBC 11.8 thou/uL (4.0-11.0)
[2019-01-02 12:49] LABS: ALBUMIN 2.6 g/dL (3.4-5.0); CALCIUM 8.4 mg/dL (8.5-10.1); CREATININE 0.8 mg/dL (0.6-1.3); TOTAL BILIRUBIN 0.4 mg/dL (<0.1-1.0); TOTAL PROTEIN 6.2 g/dL (6.4-8.2)
[2019-01-02 13:30] LABS: ABSOLUTE LYMPHOCYTES 2.1 thou/uL (0.8-5.3); ABSOLUTE MONOCYTES 0.2 thou/uL (0.0-1.2); ABSOLUTE NEUTROPHILS 9.4 thou/uL (1.6-8.1); ATYPICAL LYMPHS 4 %; METAMYELOCYTES 2 %; PLATELET ESTIMATE ADEQUATE
--- NOTE | 2019-01-02 18:27 | NUR ---
PT IN VENT SUPPORT, SETIINGS UNCHANGED THROUGHOUT THE DAY, TOLERATED WELL. VSS. VERSED STOPPED AT 1100, FENTANYL AT 30 MCG/MIN. PLAN TO STOP THE SEDATION DRIP OFF AND ADMINISTER BOLUS IF NEEDED PER PULMONOLOGY. PT RESTLESS AND MOVING THE HEAD MOSTLY, SOMETIMES CALMED BY POSITION CHANGES. VERSED ADMINISTERD ONCE THIS SHIFT. HAD LARGE BOWEL MOVEMENTS X3. TOLERATING TUBE FEEDS. ROUTINE CARE PROVIDED.
--- NOTE | 2019-01-02 22:38 | NUR ---
INITAL ASSESMENT COMPLETED AT 1930. HEART RATE, BLOOD PRESSURE AND O2 SAT WITHIN NORMAL LIMITS. ORAL TEMPERATURE 100.3 ORAL TEMP AT THIS TIME 99.7. PT'S SIGNIFICANT OTHER IN ROOM WITH PT FROM [id number]. ORAL CARE AND TRACH CARE DONE. PT RESTLESS AT TIMES, PRN VERSED GIVEN.
[2019-01-03] VITALS (25 sets, daily range): BP systolic 106–178; BP diastolic 68–108
--- NOTE | 2019-01-03 00:47 | NUR ---
PT'S ORAL TEMP AT MIDNIGHT 100.9. RESULT PAGED TO DR GUERRERO. ORDERS RECIEVED.
[2019-01-03 01:39] LABS: URINE BILIRUBIN NEGATIVE (Negative); URINE BLOOD 3+ (Negative); URINE CLARITY CLEAR; URINE COLOR YELLOW; URINE GLUCOSE-RANDOM NEGATIVE (Negative); URINE KETONES NEGATIVE (Negative); URINE LEUKOCYTES-REFLEX NEGATIVE (Negative); URINE NITRITE-REFLEX NEGATIVE (Negative); URINE PROTEIN TRACE (Negative); URINE SPECIFIC GRAVITY 1.015 (1.005-1.030)
[2019-01-03 02:05] LABS: HYALINE CASTS 0-3 Few /LPF (None Seen)
[2019-01-03 02:06] LABS: TRIPLE PHOSPHATE CRYSTALS 0-3 Few /LPF (None Seen); URINE RBC >20 Many /HPF (0-2)
[2019-01-03 02:07] LABS: BACTERIA-REFLEX 1-9 Few /HPF (None Seen); URINE WBC-REFLEX 0-5 Rare /HPF (0-5)
[2019-01-03 02:08] LABS: MUCUS None Seen strn/LPF (None Seen); SQUAMOUS 0-3 Few /LPF (0-3)
--- NOTE | 2019-01-03 10:00 | NUR ---
SPOKE WITH PT'S SISTERS. THEY ARE STRUGLLING IF THEY MADE THE RIGHT DECISION, 'HAVE WE SENTENCED HER TO BE LIKE THIS, AND NO BETTER, FOREVER.' THEY WERE ASKING WHY THE NEUROLOGIST SIGNED OFF. EXPLAINED THAT THE NEUROLOGIST DIDN'T FEEL HE HAD ANYTHING ADDITIONAL TO ADD TO THE CARE THE PATIENT WAS CURRENTLY RECEIVING, BUT IF HER CONDITION CHANGES HE CAN ALWAYS BE RE-CONSULTED. EXPLAINED WE ARE CONTINUING TO DO ALL THE TINGS THAT WE WERE DOING PRIOR TO TRACH BEING PLACED-TRYING TO GET HER WEANED OFF THE VENT, TRYING TO DECREASE HER SEDATION IF SHE TOLERATES, ETC. PROVIDED SUPPORT TO FAMILY.
[2019-01-03 10:46] LABS: BE 1.6 mmol/L (-2 to +3); PCO2 34.8 mmHg (35.0-45.0); pH 7.475 (7.340-7.450)
[2019-01-03 10:50] LABS: PO2 158.2 mmHg (75.0-100.0)
--- NOTE | 2019-01-03 18:16 | NUR ---
PT CARE ASSUMED AFTER REPORT. ASSESSMENTS COMPLETE. PT WITH TRACH AND VENTILATOR. NO PURPOSFUL MOVEMENTS OR TRACKING. SMILES AT TIMES. VERY RESTLESS THIS AM BUT BECAME CALMER THE DAY PROGRESSED. PT HAD VENT TRIAL THIS AM. TOLERATED WELL. PT APPEARED TO HAVE BRONCHO SPASMS PER RT AND THIS RN"S ASSESSMENTS. DR CONNORS NOTIFIED. ORDERS RECIEVED. ECHEVERRIA TO DD. PEG TUBE WITH JEVITY 1.5 INFUSING AT GOAL OF 50ML/H. FAMILY MEMBERS HETE THROUGH OUT THE DAY. NO S/S OF PAIN. PROGRESSING TOWARDS SOME GOALS.
[2019-01-04] VITALS (29 sets, daily range): BP systolic 98–172; BP diastolic 57–146
--- NOTE | 2019-01-04 05:12 | NUR ---
VITALS WNL, AFEBRILE. PATIENT DOES NOT TOLERATE STIMULATION, UNABLE TO REMAIN CALM WHEN RECEIVING A BATH EVEN WITH VERSED AND FENTANYL PUSHES WITHIN A SHORT TIME APART. FENTANYL GTT RUNNING AT 50 MCG/HR. OPENS/CLOSES EYES SPONTANEOUSLY, DOES NOT TRACK OR FOLLOW COMMANDS. NO BM THIS SHIFT, TF RUNNING AT GOAL OF 50ML/HR WITH NO RESIDUALS. OTHERWISE UNEVENTFUL NIGHT. Q2 TURNS FOR SKIN INTEGRITY.
--- NOTE | 2019-01-04 17:13 | NUR ---
PT CARE ASSUMED AFTER REPORT. ASSESSMENTS COMPLETE. SR/ST ON MONITOR. PT ON VENTILATOR WITH MILD SEDATION. PT AWAKE WITH NO PURPOSFUL MOVEMENT AND DOES NOT FOLLOW COMMANDS. PEG TUBE WITH JEVITY 1.5 INFUSING AT GOAL OF 50ML/HR. ECHEVERRIA TO DD. NO S/S OF PAIN. FAMILY AT BEDSIDE THIS AM. PROGRESSING TOWARDS SOME GOALS.
[2019-01-05] VITALS (21 sets, daily range): BP systolic 104–164; BP diastolic 70–114
--- NOTE | 2019-01-05 05:07 | NUR ---
Vitals stable, afebrile. IV fentanyl/versed pushes for comfort. No bowel movement this shift, able to tolerate bath. Sinus tach on the monitor. Otherwise uneventful night. Q2 turns for skin integrity.
--- NOTE | 2019-01-05 09:35 | NUR ---
Nutrition: Bolus TF recs - Jevity 1.5 @ goal of 5 cans per day. Free water flushes: 90cc before and after each bolus. See RD Assessment form for details.
--- NOTE | 2019-01-05 14:08 | NUR ---
PATIENT NO LONGER ON FENTANYL GTT. REMAINS CALM. TOLERATING FEEDS PER NEW ORDER. MOVES ALL EXTREMITIES DOESNT APPEAR TO HAVE PURPOSE. PT SCRATCHED FACE THIS AM. DISCONECTED T TUBE. BY ARM MOVEMENT.
--- NOTE | 2019-01-05 14:20 | NUR ---
HAVE TALKED WITH MOTHER SEVERAL TIMES THIS WEEK. SHE HAS TALKED WITH [employer] AND IS GATHERING THE INFORMATION THAT IS NEEDED TO APPLY FOR MEDICAID. SINCE PT HAS NO DPOA, MOTHER HAS TALKED WITH HER ENGLISH ADJUNCT FACULTY ABOUT APPLYING FOR [employer] FOR HER. PATIENT WOULD BE STABLE TO TRANSFER TO [facility] IF SHE HAD A PAYOR SOURCE, BUT SINCE SHE HAS NO INSURANCE AND NO DPOA TO BE ABLE TO APPLY FOR MEDICAID FOR HER, SHE CANNOT BE TRANSFERRED TO AN LTAC. MOTHER AND SISTERS UNDERSTAND THIS.
--- NOTE | 2019-01-05 18:45 | NUR ---
PATIENT REMAINS ON VENT TOLERATING BOLUS FEEDS. PROGRESSING SLOWLY
[2019-01-06] VITALS (11 sets, daily range): BP systolic 115–180; BP diastolic 80–106
--- NOTE | 2019-01-06 05:06 | NUR ---
VITALS STABLE, AFEBRILE. MODERATE VOMIT X1 AT THE BEGINNING OF SHIFT. BM X3, SOFT AND DARK BROWN. OTHERWISE UNEVENTFUL NIGHT. Q2 TURNS FOR SKIN INTEGRITY.
[2019-01-06 09:02] LABS: ABSOLUTE EOSINOPHILS 0.1 thou/uL (0.0-0.7); ABSOLUTE LYMPHOCYTES 1.2 thou/uL (0.8-5.3); ABSOLUTE MONOCYTES 0.9 thou/uL (0.0-1.2); ABSOLUTE NEUTROPHILS 6.2 thou/uL (1.6-8.1); BASOPHILS 0.5 %; HEMATOCRIT 27.3 % (37.0-47.0); HEMOGLOBIN 9.3 gm/dL (12.0-15.0); MCH 31.8 pg (26.0-34.0); MCHC 34.2 g/dL (28.0-37.0); MPV 7.7 fl. (7.2-11.1); NUCLEATED RBCS 0 /100WBC; PLATELET COUNT* 209 thou/uL (150-400); POLYS 73.5 %; RBC 2.94 mil/uL (4.20-5.00); RDW-CV 15.2 % (10.5-14.5); WBC 8.4 thou/uL (4.0-11.0)
[2019-01-06 09:12] LABS: CALCIUM 8.8 mg/dL (8.5-10.1); CREATININE 0.8 mg/dL (0.6-1.3); POTASSIUM 3.6 mmol/L (3.5-5.1)
[2019-01-06 09:19] LABS: APTT 26.8 Seconds (25.0-31.3); PROTIME 10.2 Seconds (9.20-11.50)
[2019-01-06 09:22] LABS: ALBUMIN 2.7 g/dL (3.4-5.0); PHOSPHORUS* 3.8 mg/dL (2.5-4.9); TOTAL BILIRUBIN 0.3 mg/dL (<0.1-1.0); TOTAL PROTEIN 6.9 g/dL (6.4-8.2)
[2019-01-06 10:21] LABS: URINE BLOOD 3+ (Negative); URINE CLARITY CLOUDY; URINE COLOR BROWN; URINE GLUCOSE-RANDOM NEGATIVE (Negative); URINE KETONES NEGATIVE (Negative); URINE LEUKOCYTES-REFLEX 1+ (Negative); URINE NITRITE-REFLEX NEGATIVE (Negative); URINE PROTEIN 2+ (Negative); URINE SPECIFIC GRAVITY <= 1.005 (1.005-1.030); URINE UROBILINOGEN 0.2 E.U./dl (0.2-1.0)
[2019-01-06 10:24] LABS: ICTOTEST (BILI CONFIRMATORY) Negative (Negative); URINE BILIRUBIN 1+ (Negative)
[2019-01-06 10:29] LABS: SQUAMOUS 0-3 Few /LPF (0-3)
[2019-01-06 10:30] LABS: CASTS None Seen /LPF (None Seen); MUCUS 0-3 Light strn/LPF (None Seen); URINE RBC >20 Many /HPF (0-2); URINE WBC-REFLEX 0-5 Rare /HPF (0-5)
[2019-01-06 10:31] LABS: CRYSTALS None Seen /LPF (None Seen); YEAST-REFLEX Present (None Seen)
--- NOTE | 2019-01-06 18:37 | NUR ---
PT CARE ASSUMED AFTER REPORT. ASSESSMENTS COMPLETE. SR/ST ON MONITOR. PT WITH INCREASED TEMP THIS AM. DR GUZMAN NOTIFIED AND ORDERS RECEIVED. NEW ECHEVERRIA CATH PLACED AFTER ROCEFIN INFUSED. PT AFEBRILE AT THIS TIME. PT WITH TRACH ON VENT. ALERT WITH NO PURPOSFUL MOVEMENT. NO S/S OF PAIN. PT PROGRESSING TOWARDS SOME GOALS.
[2019-01-07] VITALS (26 sets, daily range): BP systolic 112–176; BP diastolic 79–105
[2019-01-07 04:28] LABS: HEMATOCRIT 26.7 % (37.0-47.0); HEMOGLOBIN 9.3 gm/dL (12.0-15.0); MCH 32.4 pg (26.0-34.0); MCHC 34.9 g/dL (28.0-37.0); MCV 92.7 fL (80.0-100.0); MPV 8.8 fl. (7.2-11.1); RBC 2.88 mil/uL (4.20-5.00); RDW-CV 15.4 % (10.5-14.5); WBC 9.5 thou/uL (4.0-11.0)
[2019-01-07 04:39] LABS: ALBUMIN 2.5 g/dL (3.4-5.0); CALCIUM 8.8 mg/dL (8.5-10.1); CREATININE 0.7 mg/dL (0.6-1.3); POTASSIUM 3.8 mmol/L (3.5-5.1); TOTAL BILIRUBIN 0.3 mg/dL (<0.1-1.0); TOTAL PROTEIN 6.7 g/dL (6.4-8.2)
--- NOTE | 2019-01-07 06:24 | NUR ---
REPORT RECEIVED FROM OFF GOING SHIFT AND CARE ASSUMMED. PT REMAINS ON VENT. SETTINGS AC 22, TV 500, O2 30%, PEEP OF 5. CONNECTED TO TRACH SHILEY #6. PEG TUBE INTACT AND CLAMPED, PT RECEIVING BOLUS FEEDINGS. PT TOLERATING WELL. ECHEVERRIA INTACT AND PATENT DRAINING YELLOW URINE TO BEDSIDE BAG. NO TEMPS THIS SHIFT. MONITORS INTACT WITH ALARMS SET. VSS AND NO ACUTE CHANGES DURING SHIFT. WILL CONTINUE TO MONITOR. PT HAS NO PURPOSEFUL MOVEMENTS, DOES NOT FOLLOW COMMANDS, HOWEVER WILL GRIMACE OR SMILE AT TIMES. WILL CONTINUE OT MONITOR
--- NOTE | 2019-01-07 17:40 | NUR ---
PATIENT SOMEWHAT PROGRESSED WELL TOWARDS GOALS THIS SHIFT. STILL UNABLE TO FOLLOW COMMANDS AT THIS TIME. TOLERATING TUBE FEEDS, EASILY RESTLESS WHEN STIMULATED. MORIPHINE GIVEN X1 TODAY FOR GRIMACING AND APPEARANCE OF PAIN. BOYFRIEND VISITED THIS AFTERNOON. TRIAL COMPLETED THIS AFTERNOON, TOLERATED FULL HOUR. BLOOD PRESSURE AND RESPIRATIONS WENT UP SOME BUT ALL OTHER VITALS REMAINED STABLE AND WITHIN NORMAL LIMITS. REMAINS ON VENT. NO APPARENT PAIN AT THIS TIME. BED IN LOWEST POSITION, CALL LIGHT IN REACH, WARE CARRIER IN PLACE.
[2019-01-08] VITALS (23 sets, daily range): BP systolic 93–182; BP diastolic 61–104
--- NOTE | 2019-01-08 04:24 | NUR ---
REPORT RECEIVED FROM OFF GOING SHIFT AND CARE ASSUMMED. MONITORS INTACT WITH ALARMS SET. FAMILY AT BEDSIDE. PT HAS EYES OPENS, GRIMACES AND SMILES OCCASSIONALY.. ECHEVERRIA INTACT AND PATENT DRAINING DK YELLOW URINE TO BEDSIDE BAG. TRACH INTACT AND CONNECTED TO VENTILATOR WITHSETTINGS AC 22, TV 500, PEEP 5 AND FIO2 30%. PT HAS HAD A COUPLE EPISODES WHERE SHE APPEARED TO BE IN PAIN, FIST CLINCHED, GRIMACING, CRYING AND MOVING AROUND IN BED. HR INCREASEDTO 120-140 DURING THESES EPISODES. PAIN MEDICATION GIVEN AND PT RESTED AND HE DECREASED. TRACH CARE PERFORMED. PEG TUBE INTACT AND CLAMPED IN BETWEEN FEEDINGS. VSS AND NO ACUTE DISTRESS NOTED, WILL CONTINUE TO MONITOR.
--- NOTE | 2019-01-08 18:22 | NUR ---
PATIENT TOLERATED SECOND TRIAL WELL REMAINED ON TRIAL FOR 30 MINUTES. REMAINS CALM NO SEDATION NEEDED. TURNED EVERY 2 HOURS. PROGRESSING.
--- NOTE | 2019-01-08 20:10 | NUR ---
REPORT RECEOVED FROM OFF GOING SHIFT AND CARE ASSUMMED. PT LYING IN BED WITH EYES OPEN, UNABLE TO FOLLOW COMMANDS. 6.0 SHILEY TRACH INTACT AND CONNECTED TO VENTILATOR WITH SETTINGS- AC 22, TV 500, PEEP 5 AND FIO2 30%, WITH NO ACUTE DISTRESS NOTED. PEG TUBE INTACT AND CLAMPED. ECHEVERRIA INTACT AND PATENT DRAINING DARK YELLOW URIEN TO BEDSIDE BAG. MONITORS INTACT WITH ALARMS SET. WILL CONTINUE TO MONITOR
[2019-01-09] VITALS (24 sets, daily range): BP systolic 112–204; BP diastolic 72–114
--- NOTE | 2019-01-09 17:38 | NUR ---
PT CARE ASSUMED AFTER REPORT. ASSESSMENTS COMPLETE. ST/SR ON MONITOR. PRN PAIN MEDICATION GIVEN AFTER PT SHOOK HER HEAD UP AND DOWN WHEN ASKED IF SHE WAS IN PAIN BY DR CONNORS. PT RESPONDED APPROPRIATLY AT TIMES THROUGH OUT THE DAY AND WAS ABLE TO ANSWER SOME Y/N QUESTIONS AND MOUTH WORDS/ANSWERS THAT WERE APPROPRIATE. REMAINS WITH TRACH ON VENTILATOR. TOLERATED WEANING TRIAL X2 X1 HOUR TODAY. ECHEVERRIA TO TRICIA. BOLUS FEEDS THROUGH PEG TUBE. FAMILY HERE TO VISIT. SLOWLY PROGRESSING TOWARDS GOALS.
[2019-01-10] VITALS (23 sets, daily range): BP systolic 103–153; BP diastolic 69–101
--- NOTE | 2019-01-10 10:38 | NUR ---
Following for d/c planning needs. Called admissions liaison at [facility] and asked planner scheduler to fax referral. Will await return call re: bed availability and acceptance.
--- NOTE | 2019-01-10 17:06 | NUR ---
PT CARE ASSUMED AFTER REPORT. ASSESSMENTS COMPLETE. ST ON MONITOR. PT ALERT TODAY. ABLE TO ANSWER QUESTIONS APPROPRIATLY BY MOUTHING WORDS. PURPOSFUL MOVEMENTS. COMMUNICATED THIS AM THAT SHE WAS SCARED. PT SISTER, NA NOTIFIED AND PT'S MOTHER CAME TO BE WITH HER. NUMOROUS VISITORS THROUGH OUT THE DAY. TRACHED WITH VENTILATOR. PT TOLERATED A 1 HOUR AND LATER A 2 HOUR WEANING TRIALS. ECHEVERRIA TO TRICIA. JEVITY 1.5 TUBE FEEDS 3 TIMES TODAY. TOLERATING WELL. PROGRESSING TOWARDS GOALS.
[2019-01-11] VITALS (25 sets, daily range): BP systolic 116–151; BP diastolic 70–99
[2019-01-11 04:26] LABS: HEMATOCRIT 27.4 % (37.0-47.0); HEMOGLOBIN 9.2 gm/dL (12.0-15.0); MCH 31.5 pg (26.0-34.0); MCHC 33.5 g/dL (28.0-37.0); MPV 7.2 fl. (7.2-11.1); RBC 2.91 mil/uL (4.20-5.00); RDW-CV 15.3 % (10.5-14.5); WBC 9.7 thou/uL (4.0-11.0)
[2019-01-11 04:53] LABS: CALCIUM 9.3 mg/dL (8.5-10.1); CREATININE 0.7 mg/dL (0.6-1.3); MAGNESIUM 2.1 mg/dL (1.8-2.4); POTASSIUM 4.5 mmol/L (3.5-5.1)
--- NOTE | 2019-01-11 05:23 | NUR ---
PT. HAS BEEN TEARFUL AT TIMES THROUGHOUT SHIFT. WHEN ASKED IF SHE HURT, PT. NODDED YES, WHEN ASKED WHERE, SHE MOUTHED "EVERYWHERE". GRIMACING. POINTED UP TOWARDS THE VENT, UNSURE OF WHAT SHE WAS TRYING TO COMMUNICATE. BED TURNED AWAY FROM VENT. COMPLETE BED BATH GIVEN. NO BOWEL MOVEMENT THIS SHIFT, ALTHOUGH IT DOES APPEAR THAT PT. HAS SOME DISCOMFORT WITH ABDOMEN. PT. FELL ASLEEP AT AROUND 0430 AFTER COMPLETE BED BATH HAD BEEN GIVEN. SLEEPING SOUNDLY AT THIS TIME, WILL CONTINUE TO MONITOR.
--- NOTE | 2019-01-11 09:56 | NUR ---
8380 ASSUMED CARE OF PATIENT. SEE DOCUMENTED ASSESSMENT. PT PLACED ON 24% TRACH SHIELD. BOYFRIEND IS AT BEDSIDE
--- NOTE | 2019-01-11 13:24 | NUR ---
ABLE TO WORK WITH PHYSICAL THERAPY AND DANGLE AT EDGE OF BED. NOW BACK ON [facility] FOR TRIAL
--- NOTE | 2019-01-11 14:32 | NUR ---
SPOKE WITH MOTHER YESTERDAY ABOUT POSSIBILITY OF PT GOING TO [facility] WITH MEDICAID PENDING. MOTHER IS FAMILIAR WITH [facility] ANOTHER FAMILY MEMBER HAD BEEN THERE AND IS AGREEABLE. MOTHER COMPLETED FINANCIAL SCREENING FORM FOR [facility], FAXED THE INFO TO ESE AT [facility]. DR. GUZMAN HAS THE INFORMATION NEEDED FOR PHYSICIAN STATEMENT NEEDED FOR GUARDIANSHIP APPLICATION.
[2019-01-11 15:27] LABS: BE 3.6 mmol/L (-2 to +3); PCO2 38.6 mmHg (35.0-45.0); PO2 94.9 mmHg (75.0-100.0)
--- NOTE | 2019-01-11 18:03 | NUR ---
PATIENT IS PROGRESSING TOWARDS GOALS. PATIENT HAS BEEN ON TRACH SHIELD FOR TWO TRIALS. A THREE HOUR AND A TWO HOUR TRIAL WITH ABG REPORTED. RATE NOW DOWN TO 12 ON ASSIST CONTROL. TOLERATED BOLUS TUBE FEEDINGS. VSS. ABLE TO WORK WITH PHYSICAL THERAPY AND SIT AT EDGE OF BED,FOLLOWING COMMANDS. ONE TWO HOUR PERIOD OF SLEEP THIS AFTERNOON. MANY VISITORS.
[2019-01-12] VITALS (17 sets, daily range): BP systolic 93–145; BP diastolic 44–96
--- NOTE | 2019-01-12 07:35 | NUR ---
Pt slept intermittently and appeared restful for much of shift. After 0400, pt became more restless/tense-looking. Pt medicated for apparent pain (grimacing) twice during shift. When using PEG tube, noted escaping air when unclamping. Pt's abdomen is firm and distended; passing flatus intermittently. Pt tracking with eyes, and on occasion mouthing words. Pt also seems to be nodding head "yes" or shaking head "no" appropriately. VSS. Will continue to monitor.
--- NOTE | 2019-01-12 18:15 | NUR ---
PATIENT PROGRESSING TOWARDS GOALS. ABLE TO SIT ON SIDE OF BED WITH PT AND DO LEG EXERCISES. TRACKING, ANSWERING SIMPLE QUESTIONS WITH HEAD NODS AND MOUTHING WORDS, AND FOLLOWS SOME COMMANDS. FAMILY PRESENT TODAY AND UPDATED ON PLAN OF CARE. NO NEW ACUTE CONCERNS.
[2019-01-13] VITALS (23 sets, daily range): BP systolic 102–161; BP diastolic 55–108
--- NOTE | 2019-01-13 07:06 | NUR ---
PROGRESSING TOWARDS GOALS, AWAKE MOST OF NOC, NODDING HEAD YES/NO TO SIMPLE QUESTIONS, ATTEMPTING TO SPEAK, INCREASED RESTLESSNESS DURING NOC, MORHPINE 5MG VIA PEG TUBE GIVEN FOR PAIN WITH SOMEWHAT HELPFUL RESULTS, TOLERATING BOLUS TUBE FEEDINGS, WITH NO GASTRIC RESIDUALS DURING SHIFT. TRACHEOSTOMY SHEILD DURING EVEING AND VENTILATOR DURING NOC, PULLING APART VENTILATOR TUBING MULTIPLE TIMES, EMOTIONAL SUPPORT PROVIDED, SAO2 =>98%, ECHEVERRIA PATENT DD TRACHEOSTOMY CARES DONE PER PROTOCOL, SAFETY MAINTAINED.
--- NOTE | 2019-01-13 16:11 | CON ---
[address] [address] CONSULTATION Name: MARTHANASEEM M Room: [address] IN .R.#: [id number] Admission: 12/13/18 Attend Phys: Elina Mckeon MD Discharge: Date of : 77 Report #: [id number] THIS REPORT FOR: //name// CC: Chad Pena FAM unknown Elina Mckeon HISTORY OF PRESENT ILLNESS: This is a 43-year-old female, who was brought into the hospital after an [id number] cardiac arrest. The patient was initially placed on hypothermia protocol and has been recovering since. The patient is currently intubated, sedated and has evidence of hypoxic injury. The GI service has been consulted for evaluation of possible PEG placement. The patient is nonverbal, can open eyes, but displays some purposeful movements. Most of the history has been obtained by reviewing the chart and by speaking with the family members, who were at her bedside. There is no prior history of upper abdominal surgery and there is no known history of any bleeding diathesis. FAMILY HISTORY: There is no family history of colorectal cancer or Villatoro-related neoplasia. SOCIAL HISTORY: Unknown. REVIEW OF SYSTEMS: Unable to obtain due to the patient's mental status. PHYSICAL EXAMINATION: VITAL SIGNS: Temperature 36.8, pulse rate 90, respirations 22 on the vent, blood pressure 107/57 and pulse ox 97%. GENERAL: The patient opens eyes to voice, but does not follow any commands. There are no purposeful movements, does not withdraw to pain. HEENT: Pupils are equal and round. Mucous membranes are moist. There is no congestion. LUNGS: Clear to auscultation bilaterally. CARDIOVASCULAR: Rate and rhythm regular. S1, S2 present. ABDOMEN: Soft. There is no distention, no tenderness, guarding or rigidity. EXTREMITIES: Warm, well perfused. LABORATORY DATA: Hemoglobin 9.2, hematocrit 27.4, platelet count 294, WBC count 9.8. Sodium 134, potassium 3.9, chloride 101, bicarbonate 25, BUN 18, creatinine 0.8, total bilirubin 0.8, AST 33, ALT 48, alkaline phosphatase 63. INR 1.1. ASSESSMENT AND PLAN: This is a 43-year-old female with history [id number] cardiac arrest, stays on hypothermia protocol with no evidence of anoxic brain injury. The GI service has been consulted for evaluation of percutaneous endoscopic gastrostomy placement. Benefits and risks of percutaneous endoscopic gastrostomy placement have been described in detail to the patient's mother, who was at her bedside, and the percutaneous endoscopic [place] [address] CONSULTATION Name: NASEEM THOMAS Room: [address] IN ..#: [id number] Admission: 12/13/18 Attend Phys: Elina Mckeon MD Discharge: Date of : 77 Report #: [id number] long-term nutrition. Percutaneous endoscopic gastrostomy tube has to be in place at least for 4 weeks and consider stayed in for years if necessary. The primary team is planning on weaning trials after the percutaneous endoscopic gastrostomy has been placed. Plan for esophagogastroduodenoscopy and percutaneous endoscopic gastrostomy placement tomorrow. Thank you for this consultation. Please do not hesitate to call or contact us with any further questions. About 30 minutes were spent [id number] with the patient in the ICU, performing physical examination, reviewing chart and formulating a plan of care. <ELECTRONICALLY SIGNED> By: Case Jiang MD 01/13/19 1611 [id number] Jiang MD /nt
--- NOTE | 2019-01-13 19:56 | NUR ---
PT TOLERATED TRACH SHIELD THE WHOLE DAY, VSS. ALERT AND RESPONSIVE TO YES OR NO QUESTIONS APPROPRIATELY. SPONGE BATH AND ORAL CARE PROVIDED. SHE SAT UP AT THE EDGE OF THE BED 15 MINS AND WAS ABLE TO STAND UP WITH THE MAX ASSIST OF PT. TOLERATING HER TUBE FEEDS. NO BM BUT PASSING FLATUS. HEATING PADS APPLIED FOR ABOUT 3 HRS FOR THE ABDOMINAL PAIN, PT COMFORTABLE. TRACHEOSTOMY DSG CHANGED.
[2019-01-14] VITALS (22 sets, daily range): BP systolic 105–131; BP diastolic 66–91
[2019-01-14 04:32] LABS: HEMATOCRIT 26.7 % (37.0-47.0); HEMOGLOBIN 8.8 gm/dL (12.0-15.0); MCV 93.9 fL (80.0-100.0); MPV 6.9 fl. (7.2-11.1); NUCLEATED RBCS 0 /100WBC; RBC 2.85 mil/uL (4.20-5.00); RDW-CV 16.1 % (10.5-14.5); WBC 8.5 thou/uL (4.0-11.0)
[2019-01-14 04:40] LABS: CALCIUM 8.9 mg/dL (8.5-10.1); CREATININE 0.6 mg/dL (0.6-1.3)
[2019-01-14 04:46] LABS: PLATELET COUNT* 623 thou/uL (150-400)
[2019-01-14 06:09] LABS: ABSOLUTE BASOPHILS 0.2 thou/uL (0.0-0.2); ABSOLUTE EOSINOPHILS 0.3 thou/uL (0.0-0.7); ABSOLUTE MONOCYTES 0.4 thou/uL (0.0-1.2); ABSOLUTE NEUTROPHILS 5.6 thou/uL (1.6-8.1); ATYPICAL LYMPHS 1 %; METAMYELOCYTES 1 %; PLATELET ESTIMATE ADEQUATE
--- NOTE | 2019-01-14 07:00 | NUR ---
PROGRESSING TOWARDS GOALS, AWAKE, ALERT, WITH EYES OPEN MOST OF NOC, FOLLOWING SIMPLE COMMANDS, NODDING HEAD YES/NO TO QUESTIONS, ATTEMPTING TO MOUTH WORDS, COOPERATIVE WITH CARES, SAO2 =>97%, C/O ABD PAIN, MORPHINE 5MG VIA PEG TUBE PER ORDER GIVEN X1 WITH EFFECTIVE PAIN CONTROL, K-PAD ALSO HELPFUL FOR PAIN MANAGMENT, REMAINS NSR TRACING WITH OCCASIONAL PVC'S FRENCH DRAWER. SAFETY MAINTAINED.
--- NOTE | 2019-01-14 12:00 | NUR ---
PT NODS HER HEAD YES TO PERINEUM BURNING, MARLON-CARE PROVIDED AND COLD PACKS APPLIED. PT COMFORTABLE WITH COLD APPLICATION.
--- NOTE | 2019-01-14 18:10 | NUR ---
PT ALERT, MORE RESPONSIVE AND PURPOSEFUL. TOLERATED TRACH SHIELD THE WHOLE DAY. VSS. COMPLETE BED BATH GIVEN AND LINENS CHANGED. TOLERATING TUBE FEEDS WITH NO RESIDUALS. GOOD URINE OUTPUT. PT MORE COMFORTABLE TODAY, NO PAIN MEDS REQUIRED THIS SHIFT.
[2019-01-15] VITALS (20 sets, daily range): BP systolic 102–138; BP diastolic 67–93
--- NOTE | 2019-01-15 06:23 | NUR ---
PROGERSSING TOWARDS GOALS, AWAKE MOST OF NOC, FOLLOWING SIMPLE COMMANDS SUCH TUMBS UP ON COMMAND, MOUTHING WORDS, NODDING/SHAKING HEAD YES/NO APPROPRIATELY TO SIMPLE QUESTIONS, MORPHINE 5MG ORAL GIVEN X1 FOR C/O ABD PAIN, MORPHINE AND KPAD EFFECTIVE FOR PAIN MANAGEMENT, TRACHSHEILD DURING EVENING AND VENTILATOR DURING NOC PER ORDER, SAO2 =>99%, TOLERATING TUBE BOLUS TUBE FEEDING. TRACHESTOMY CARES DONE PER PROTOCOL. AFEBRILE, NSR WITH OCCASIONAL PVC TRACINGS BODY SANDER, SAFETY MAINTAINED.
--- NOTE | 2019-01-15 10:38 | NUR ---
PATIENT MORE ALERT CO HEADACHE AFEBRILE TOLERATING TUBE FEED.
--- NOTE | 2019-01-15 11:00 | NUR ---
GAVE LETTER WRITTEN BY , FOR GUARDIANSHIP APPLICATION, TO PT'S SISTER,GITA. SHE SAID HER MOM WOULD BE THERE SHORLTY AND SHE WOULD GIVE HER THE LETTER. COPY OF LETTER PLACED IN PT.'S CHART.
--- NOTE | 2019-01-15 17:58 | NUR ---
PATIENT TOLERTAED ECHEVERRIA REMOVAL CO HEADACHE AT TIMES. ALERT BUT SLOW TO RESPOND PROGRESSING SLOWLY.
[2019-01-16] VITALS (23 sets, daily range): BP systolic 102–129; BP diastolic 61–96
--- NOTE | 2019-01-16 06:56 | NUR ---
VSS, O2 SAT REMAINED >92%. PT TRACKS, COMMUNICATES VIA SHAKING/NODDING HEAD, GESTURING, AND MOUTHING WORDS. VOIDED X1 ON BEDPAN. REQUESTED BEDPAN SEVERAL TIMES THROUGHOUT THE NIGHT BUT UNABLE TO VOID, INCONTINENT X1 OF VERY LARGE AMOUNT URINE WHICH SATURATED CHUX.
--- NOTE | 2019-01-16 10:01 | NUR ---
PT ALERT AND AWAKE. NODDING HEAD YES/NO. MOUTHING "YES". VSS. AFEBRILE. TUBE BOLUS ADMIINSTERED. WATER BOLUS ADMININSTERED. PT REPOSITIONED. PT BATHED. NEW BEDDING. PT WORKING WITH PHYSICAL THERAPY .
--- NOTE | 2019-01-16 14:57 | NUR ---
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
--- NOTE | 2019-01-16 18:01 | NUR ---
PT INCONTINENT 3 TIMES THIS SHIFT. PT ATTEMPTING TO REPORT NEEDING BATHROOM OR INCONTINENCE. VSS. AFEBRILE. PT STOOD UP WITH PHYSICAL THERAPY. PT USED SPEAKING VALVE WITH SPEECH THERAPY.
[2019-01-17] VITALS (24 sets, daily range): BP systolic 101–129; BP diastolic 61–86
--- NOTE | 2019-01-17 06:10 | NUR ---
VSS, O2 SAT HAS REMAINED >92%. PRN MORPHINE GIVEN PER PEG TUBE X2 FOR C/O BACK PAIN, ADEQUATE RELIEF OBTAINED AND CONFIRMED BY PTS CHANGE IN BEHAVIOR AND NODDING HEAD WHEN ASKED IF PAIN HAS SUBSIDED. INCONTINENT X1 OF LARGE AMOUNT URINE SATURATING CHUX. TRACH CARE PROVIDED AND INNER CANNULA CHANGED. PRN MELATONIN GIVEN AT HS, PT APPEARED TO SLEEP WELL FOR APPROXIMATELY 4 HOURS. PT HAS BEEN TURNED Q2HR THROUGHOUT THE SHIFT.
--- NOTE | 2019-01-17 12:36 | NUR ---
Following for d/c planning needs. Additional financial information paperwork that needs to be signed for [facility], was given to pt's mother.
--- NOTE | 2019-01-17 15:01 | NUR ---
WOUND NURSE- PATIENT REMAINS ON WOUND CARE CONSULT LIST FOR LOW RDAHA. DISCUSSED WITH NURSE, CHRIS, WHO REPORTS THAT PATIENT IS NOW ON VENTILATOR ONLY AT NIGHT, AND SKIN ALL REMAINS INTACT. WOUND CARE NURSE WILL FOLLOW-UP, INDICATED.
--- NOTE | 2019-01-17 16:53 | NUR ---
PT CARE ASSUMED AFTER REPORT. ASSESSMENTS COMPLETE. SR ON MONITOR. PT ON TRACH SHIELD THROUGH OUT THE DAY. TOLERATES WELL. PEG TUBE WITH FEEDINGS PER ORDERS. PT ABLE TO EXPRESS MOST NEEDS BY MOUTHING WORDS. PT INCONT OF URINE. PRN PAIN MEDICATION GIVEN PER PT REQUEST FOR BACK PAIN. FAMILY AT BEDSIDE THROUGH OUT THE DAY. PROGRESSING TOWARDS GOALS.
[2019-01-18] VITALS (20 sets, daily range): BP systolic 96–129; BP diastolic 70–86
--- NOTE | 2019-01-18 06:41 | NUR ---
Pt rested well overnight. Incontinent of urine X2. Tolerated bolus feedings well. VSS. Will continue to monitor.
[2019-01-19] VITALS (21 sets, daily range): BP systolic 87–138; BP diastolic 56–89
[2019-01-19 04:22] LABS: ALBUMIN 2.6 g/dL (3.4-5.0); CALCIUM 9.5 mg/dL (8.5-10.1); CREATININE 0.6 mg/dL (0.6-1.3); MAGNESIUM 1.9 mg/dL (1.8-2.4); POTASSIUM 5.4 mmol/L (3.5-5.1); TOTAL BILIRUBIN 0.2 mg/dL (<0.1-1.0); TOTAL PROTEIN 6.6 g/dL (6.4-8.2)
[2019-01-19 05:09] LABS: HEMATOCRIT 29.2 % (37.0-47.0); HEMOGLOBIN 9.7 gm/dL (12.0-15.0); MCH 31.6 pg (26.0-34.0); MCHC 33.1 g/dL (28.0-37.0); MCV 95.4 fL (80.0-100.0); RBC 3.06 mil/uL (4.20-5.00); RDW-CV 16.1 % (10.5-14.5)
--- NOTE | 2019-01-19 07:04 | NUR ---
Pt awake much of night, restless at times. Trach positioning affecting effectiveness of ventilator, causing inadequate tidal volumes frequently. Multiple adjustments made by RT and RN; but since approx 0430 ventilator has not alarmed. Pt remains awake. VSS. Pt used bedpan to void twice; no episodes of incontinence overnight. Also no BM yet. Medicated for c/o back pain prn; see MAR. Will continue to monitor.
--- NOTE | 2019-01-19 11:19 | NUR ---
[facility] provided one more financial screening form for mother to complete and sign. ICU notified and will give it to the mother when she gets here. Updated clinical information faxed to Samantha at [facility]. Pt still qualifies for LT[facility] as she has the vent at night, still relatively new trach, need for PT, OT, ST.
--- NOTE | 2019-01-19 17:30 | NUR ---
Pt care assumed after report. Assessments complete. SR on monitor. Pt sat at the side of the bed today with assistance. Also sat up in reclining chair for approx. 30 min. Tolerated fair. Rested with eyes closed trough out the afternoon. Prn pain medication given per pt requests. Prn zofran given for nausea. Voids per bedpan. Trach shield in place. Pt family at bedside throughout the day. Progressing towards goals.
[2019-01-20] VITALS (11 sets, daily range): BP systolic 99–126; BP diastolic 62–86
--- NOTE | 2019-01-20 07:43 | NUR ---
VSS, O2 SAT REMAINS >92%. COMPLETE BED BATH GIVEN AT 2200, HAIR SHAMPOOED. PRN MIRALAX GIVEN AT HS WITH SCHEDULED SENNA, NO BM TONIGHT. PT COMMUNICATES VIA NODDING/SHAKING HEAD, GESTURES, AND MOUTHING WORDS. PT INDICATED THAT SHE HAD PAIN IN HER LEGS, ASKED PT IF SHE HAS EVER BEEN DIAGNOSED WITH RESTLESS LEG SYMDROME. PT BECAME WIDE-EYED, SMILED, AND NODDED VIGOROUSLY. THIS INFORMATION WAS PASSED ON TO DR GUZMAN ON THE UNIT THIS AM. PRN MORPHINE WAS GIVEN AT THAT TIME WITH MINIMAL DECREASE IN LOWER EXTREMITY RESTLESSNESS. PT HAS BEEN TURNED Q2HR THROUGHOUT THE SHIFT.
--- NOTE | 2019-01-20 14:22 | NUR ---
PT WITH C/O CP DURING PHYSICAL THERAPY IN HER ROOM. EKG OBTAINED. NSR. LABS AND CXR ORDERED. DR STUART NOTIFIED PER WEB PAGE. WILL CONTINUE TO MONITOR.
--- NOTE | 2019-01-20 14:37 | NUR ---
SPOKE WITH DR GUZMAN RE PT CHEST PAIN NO NAUSEA OR DIAPHORESIS NOTED EKG AND TROPONIN DONE ORDERED VITAL SIGNS WNL. NO NEW ORDERS GIVEN.
--- NOTE | 2019-01-20 17:23 | NUR ---
PT SR ON MONITOR. UP TO BSC THIS AM TO VOID. UP TO LOUNGE CHAIR X30MIN AFTER VOIDING. PT EKG AND TROPONIN WNL. NO NEW REPORTS OF CHEST PAIN. PT IS ABLE TO MAKE HER NEEDS KNOWN. PT REFUSED SPEAKING VALVE THROUGH OUT THE DAY. COMMUMICATES THAT SHE FEELS THAT IT AFFECTS HER BREATHING. PT OFFERED BISCODYL SUPPOSITORY SEVERAL TIMES TODAY FOR CONSTIPATION. PT REFUSED IT MUTIPLE TIMES. FAMILY AND FRIENDS AT BEDSIDE THROUGH OUT THE DAY. PRN PAIN MEDICATIONS GIVEN PER PT REQUESTS. PROGRESSING TOWARDS GOALS.
[2019-01-21] VITALS (19 sets, daily range): BP systolic 101–136; BP diastolic 64–82
[2019-01-21 03:26] LABS: HEMATOCRIT 27.9 % (37.0-47.0); HEMOGLOBIN 9.3 gm/dL (12.0-15.0); MCH 31.5 pg (26.0-34.0); MCHC 33.2 g/dL (28.0-37.0); MCV 94.9 fL (80.0-100.0); MPV 7.4 fl. (7.2-11.1); NUCLEATED RBCS 0 /100WBC; RBC 2.94 mil/uL (4.20-5.00); RDW-CV 15.8 % (10.5-14.5); WBC 7.1 thou/uL (4.0-11.0)
[2019-01-21 03:42] LABS: ALBUMIN 2.4 g/dL (3.4-5.0); CALCIUM 9.5 mg/dL (8.5-10.1); CREATININE 0.6 mg/dL (0.6-1.3); MAGNESIUM 1.7 mg/dL (1.8-2.4); POTASSIUM 4.5 mmol/L (3.5-5.1); TOTAL BILIRUBIN 0.2 mg/dL (<0.1-1.0); TOTAL PROTEIN 6.4 g/dL (6.4-8.2)
[2019-01-21 03:46] LABS: PLATELET COUNT* 307 thou/uL (150-400)
[2019-01-21 05:25] LABS: ABSOLUTE BASOPHILS 0.1 thou/uL (0.0-0.2); ABSOLUTE EOSINOPHILS 0.1 thou/uL (0.0-0.7); ABSOLUTE LYMPHOCYTES 1.3 thou/uL (0.8-5.3); ABSOLUTE MONOCYTES 0.6 thou/uL (0.0-1.2); ABSOLUTE NEUTROPHILS 4.9 thou/uL (1.6-8.1); METAMYELOCYTES 1 %
[2019-01-21 05:27] LABS: LARGE PLATELETS OCCASIONAL; PLATELET ESTIMATE ADEQUATE; POLYCHROMASIA 1+
--- NOTE | 2019-01-21 05:59 | NUR ---
VSS, O2 SAT REMAINS >92%. ASSISTED PT TO [facility] [place], MAX ASSISTED REQUIRED BUT PT TOLERATED WELL AND WAS ABLE TO SIT ERECT ON COMMODE WITH MINIMAL ASSISTANCE FOR STABILIZATION. APPROXIMATELY 0100 PT BECAME ACUTELY ANXIOUS AND APPEARED FEARFUL, MOUTHED "CAN'T BREATHE." O2 SAT AT THAT TIME 99-100%. TRACH SUCTIONED, NO SPUTUM PRESENT. ASSISTED PT TO SIT AT EDGE OF BED WITHOUT IMPROVEMENT IN SOA. RT IN ROOM AND VERIFIED VENT CONNECTION AND FUNCTIONING PROPERLY. IVP ATIVAN GIVEN, RELIEF OF ANXIETY ACHIEVED AND PT WAS ABLE TO SLEEP. PT C/O BACK PAIN X1, PRN MORPHINE GIVEN ORDERED. PRN REQUIP GIVEN X2 FOR SYMPTOMS OF RLS, PT REPORTED DECREASE IN SYMPTOMS WITH REQUIP. PROVIDED PT WITH INSTRUCTION ON USE OF CALL LIGHT, SHE RETURNED DEMONSTRATION. CALL LIGHT WITHIN REACH.
[2019-01-21 07:56] LABS: CHOLESTEROL 131 mg/dL (<200); HDL CHOLESTEROL 29 mg/dL (>40); LDL CHOLESTEROL 80 mg/dL (<100); TC:HDL 4.5 Ratio (Not establshd); TRIGLYCERIDE 112 mg/dL (<150); VLDL 22 mg/dL (<40)
[2019-01-21 07:57] LABS: SERUM ASSESSMENT Clear
--- NOTE | 2019-01-21 10:33 | NUR ---
PATIENT WAS ABLE TO TOLERATE SPEAKING VALVE FOR 15 MINUTES THIS MORNING. PATIENT STATED SHE WAS TIRED AND I ASKED IF SHE WOULD TRY AGAIN FOR 15 MINUTES AROUND LUNCH AND SHE AGREED.
--- NOTE | 2019-01-21 18:06 | NUR ---
PATIENT PROGRESSING WELL TOWARDS GOALS THIS SHIFT. WAS ABLE TO TOLERATE THE SPEAKING VALVE FOR 10 MINUTES AT LUNCH AND ANOTHER 15 MINUTES AROUND DINNER WHILE SISTER AND MOTHER WERE HERE. PATIENT DID BECOME VERY AGITATED AT DINNER WITH SPEAKING VALVE BUT WAS ABLE TO TOLERATE THE FULL 15MINTUES. PATIENT SEEMS TO BE WHISPERING WITH VALVE IN PLACE, EDUCATED THAT SHE NEEDS TO SPEAK UP SOME BUT SHE BECOMES FRUSTRATED. STILL HAVING PAIN IN LEGS, REQUIP AND NAPROXEN GIVEN THIS SHIFT. RESTING AT THIS TIME, NO SHORTNESS OF AIR. TRACH SHIELD IN PLACE AT THIS TIME. FAMILY AT BEDSIDE. BED IN LOWEST POSITON, CALL LIGHT IN REACH, STENOTYPE MACHINE OPERATOR IN PLACE.
[2019-01-21 22:05] LABS: HEPATITIS B SURFACE AG Negative (Negative)
[2019-01-22] VITALS (16 sets, daily range): BP systolic 89–133; BP diastolic 58–89
[2019-01-22 04:22] LABS: ALBUMIN 2.7 g/dL (3.4-5.0); CALCIUM 9.4 mg/dL (8.5-10.1); CREATININE 0.7 mg/dL (0.6-1.3); MAGNESIUM 1.9 mg/dL (1.8-2.4); POTASSIUM 4.2 mmol/L (3.5-5.1); TOTAL BILIRUBIN 0.2 mg/dL (<0.1-1.0); TOTAL PROTEIN 6.6 g/dL (6.4-8.2)
--- NOTE | 2019-01-22 08:42 | NUR ---
APPROXIMATELY 0030 PT REPORTED "CAN'T BREATHE" AND WAS VISIBLY ANXIOUS AND FRIGHTENED. O2 SAT WAS 97%, TRACH SUCTIONED WITH NO RETURN, VERIFIED VENT FUNCTIONING APPROPRIATELY. CALL PLACED TO DR VALENCIA, ORDER RECEIVED FOR ATIVAN 0.5MG IVP X1 WHICH WAS GIVEN ORDERED WITH RELIEF OF SYMPTOMS. AT 0630 THIS RN FOUND PT TO BE IN BED WATCHING TV, APPEARING CONTENT AND SMILING. NOTED TRACH COMPLETELY REMOVED AND LYING ON PTS NECK BENEATH THE INTACT TRACH SHIELD. IT SEEMED PT DID NOT KNOW TRACH WAS NO LONGER IN PLACE. O2 SAT AT THAT TIME 99%, PT DENIED SOA AND PAIN. NO BLEEDING OR IRRITATION NOTED TO STOMA. RT CALLED TO ROOM AND ATTEMPTED TO GUIDE TRACH BACK INTO PLACE WITHOUT SUCCESS. DR CUTLER CAME TO UNIT AND SUCCESSFULLY REPLACED TRACH WITH USE OF OBTURATOR. PT HAS BEEN TURNED Q2HR THROUGHOUT THE NIGHT.
--- NOTE | 2019-01-22 10:46 | EKG ---
[place] [address] ELECTROCARDIOGRAM REPORT Name: NASEEM THOMAS Room: [address] ADM IN M.R.#: [id number] Admission: 12/13/18 Attend Phys: Elina Mckeon MD Discharge: Date of : 77 Report #: [id number] THIS REPORT FOR: //name// 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 : 1975 Requested By: Arnaldo Sidhu Order Number: [id number] Leidy MD: Chad Pena Measurements Intervals [place] Rate: 81 P: 40 NC: 173 QRS: 2 QRSD: 103 T: 38 QT: 373 QTc: 433 Interpretive Statements Sinus rhythm artifact noted Borderline low voltage, extremity leads Baseline wander in lead(s) V2 Compared to ECG 12/15/2018 20:16:16 Possible ischemia no longer present Prolonged QT interval no longer present Electronically Signed On 01-22-2019 10:46:19 CDT by Chad Pena [email or web address] <ELECTRONICALLY SIGNED> By: Chad Pena MD, FACC 01/22/19 1046 1413 1413 Chad Pena MD, [facility] /EPI
--- NOTE | 2019-01-22 13:30 | NUR ---
Faxed updated clinical information to Samantha at [facility], [facility] continues to follow to see if they can accept pt as Medicaid pending. Spoke with mother at bedside, she will check with her cable armorer operator to see of there is a court date set yet for guardianship hearing, mother is applying to become pt's guardian.
--- NOTE | 2019-01-22 17:53 | NUR ---
PATIENT PROGRESSING WELL TOWARDS GOALS. WORE SPEAKING VALVE FOR 30 MINUTES THIS EARLY AFTERNOON AND THEN AGAIN FOR ANOTHER 45 MINTUES THIS AFTERNOON. UP TO THE CHAIR FOR 45 MINUTES THIS AFTERNOON AND TOLERATED WELL. UP TO THE COMMODE MULTIPLE TIMES TO URINATE AND HAD A BOWEL MOVMENT WELL. DAVID MATTHE[facility] CALLED TO SAY [facility] COULD POTENTIALLY TAKE PATIENT TO [facility] TOMORROW AND 30 MINUTES LATER [facility] CALLED TO GET VENT SETTINGS FOR PATIENT AND NOTIFED THIS RN THAT PATIENT WILL FOR SURE BE TRANSFERING OUT TOMORROW. NOTIFED FAMILY AT THIS TIME. NOTIFIED DR GUZMAN VIA [facility]. NO PAIN, NAUSEA OR SHORTNESS OF AIR AT THIS TIME. REMAINS ON TRACH SHIELD AT THIS TIME. CALL LIGHT IN REACH, CARDIAC MOINTOR IN PLACE. WILL CONTINUE TO [facility]
--- NOTE | 2019-01-22 18:59 | NUR ---
PLACED SPEAKING VALVE ON AT 1825 AND CONTINUING TO TOLERATE AT THIS TIME. RESTING WITH FAMILY AT BEDSIDE
[2019-01-23] VITALS (17 sets, daily range): BP systolic 100–125; BP diastolic 59–86
--- NOTE | 2019-01-23 07:00 | NUR ---
VSS, O2 SAT REMAINS >92%. TRACH CARE PROVIDED. TOLERATING TUBE FEEDS WITH NO C/O NAUSEA OR VOMITTING. UP TO CHAIR THIS AM X30 MINUTES, TOLERATED WELL. PT HAS BEEN TURNED Q2HR THROUGHOUT THE NIGHT. CALL LIGHT WITHIN REACH.
[2019-01-23] MEDS ORDERED: ACETYLCYST200 MG/1 M INH (07:18)
[2019-01-23] MEDS ORDERED: SENNA8.6 MG PERTUBE (07:18)
[2019-01-23] MEDS ORDERED: HYDROXYZINE HCL10 M2 PERTUBE (07:18)
[2019-01-23] MEDS ORDERED: ACETAMINOP160 MG/5 M PERTUBE (07:18)
[2019-01-23] MEDS ORDERED: MILK OF MA2400 MG/11 PO (07:18)
[2019-01-23] MEDS ORDERED: IPRAT-ALBUT 0.5-3 ML INH ×2 (07:18)
[2019-01-23] MEDS ORDERED: PREVACID30 M2 PERTUBE (07:18)
[2019-01-23] MEDS ORDERED: DOCUSATE SODIUM PO (07:18)
[2019-01-23] MEDS ORDERED: ONDANSETRON HCL4 M1 IVPUSH (07:18)
[2019-01-23] MEDS ORDERED: KENWOOD THERAP240 ML PERTUBE (07:18)
[2019-01-23] MEDS ORDERED: MAG-AL PLUS SUS30 ML PO (07:18)
[2019-01-23] MEDS ORDERED: DULCOLAX10 MG RECTAL (07:18)
[2019-01-23] MEDS ORDERED: REQUIP 1 MG TABL1 M1 PO (07:18)
[2019-01-23] MEDS ORDERED: LIDOPATCH1 EACH TOP (07:18)
[2019-01-23] MEDS ORDERED: CHOLESTYRAMINE P4 GM PERTUBE (07:18)
[2019-01-23] MEDS ORDERED: NAPROXEN375 MG PO (07:18)
[2019-01-23] MEDS ORDERED: *ELECTROLYTE REPLACE PO (07:18)
[2019-01-23] MEDS ORDERED: ENOXAPARIN40 MG/0.1 SUBQ (07:18)
[2019-01-23] MEDS ORDERED: REFRESH CLASSI1 EACH OPHTHALMIC (07:18)
[2019-01-23] MEDS ORDERED: MELATONIN5 M1 PO (07:18)
[2019-01-23] MEDS ORDERED: MIRALAX17 GM PERTUBE (07:18)
[2019-01-23] MEDS ORDERED: BANOPHEN25 MG PO (07:18)
[2019-01-23] MEDS ORDERED: PHENERGAN 25 MG25 M1 PO (07:18)
[2019-01-23] MEDS ORDERED: DEPAKENE250 MG/5 M PERTUBE (07:18)
[2019-01-23] MEDS ORDERED: LISINOPRIL2.5 MG PO (07:22)
[2019-01-23] MEDS ORDERED: CARVEDILOL3.125 MG PO (07:22)
--- NOTE | 2019-01-23 11:20 | NUR ---
PATIENT SAT UP IN CHAIR FOR 30 MINUTES THIS MORNING, WORE SPEAKING VALVE FOR AN HOUR AND A HALF. TOLERATED WELL. BACK IN BED AT THIS TIME.
--- NOTE | 2019-01-23 14:09 | NUR ---
SPOKE WITH ESE AT [facility], THEY CAN ACCEPT PATIENT TODAY. SHE IS GOING TO ROOM 210, DR. FRYE ADMITTING PHYSICIAN, PHONE NUMBER TO CALL REPORT IS [phone]. THEY WOULD LIKE PT TO LEAVE HERE ABOUT 8:30 THIS EVENING TO ACCOMADATE ROOM CHANGES THEY ARE MAKING TO GET A ROOM CLOSE TO THE NURSES STATUS FOR NASEEM.
--- NOTE | 2019-01-23 18:24 | NUR ---
PATIENT PROGRESSING WELL TOWARDS GOALS. ABLE TO GET UP TO CHAIR TODAY, AND TO COMMODE MULTIPLE TIMES TO URINATE AND TOLERATED WELL. WORE HER SPEAKING VALVE FOR 2 HOURS STRAIGHT THIS AFTERNOON. PATIENT HAS SOME KNEE PAIN, NAPROXEN GIVEN, NO NAUSEA OR SHORTNESS OF AIR. TOLERATING TUBE FEEDS. PATIENT TO GO TO [facility] AT 2030 THIS EVENING. CARE ASST RN TO CALL REPORT AFTER 1930 TO NURSE ON SHIFT AT [facility] AND [facility] ALREADY SET UP TO [employer] DEVELOPER PATIENT AT 2030 TONIGHT. FAMILY NOTIFIED AND AT BEDSIDE ALL DAY. CALL LIGHT IN REACH, PARACHUTE OFFICER IN PLACE.
--- NOTE | 2019-01-23 20:53 | NUR ---
Pt transferred to [facility] per EMS; dc'd from unit per jose l. Report called to Alice at [facility]. Pt accompanied by mother, sister, and boyfriend. VSS.
--- NOTE | 2019-02-02 12:34 | OP ---
[address] [address] OPERATIVE REPORT Name: NASEEM THOMAS Room: [address] IN M.R.#: [id number] Admission: 12/13/18 Attend Phys: Elina Mckeon MD Discharge: 01/23/19 Date of : 77 Report #: [id number] THIS REPORT FOR: //name// CC: Chad Pena FAM unknown Elina Mckeon DATE OF SERVICE: 01/01/2019 PREOPERATIVE DIAGNOSES: Respiratory failure and encephalopathy. POSTOPERATIVE DIAGNOSES: Respiratory failure and encephalopathy. OPERATIVE PROCEDURE DONE: Tracheostomy. OPERATING SURGEON: Chris Sosa MD INDICATIONS FOR THE PROCEDURE: The patient is a 43-year-old female, who was recently diagnosed with encephalopathy and was in respiratory failure for a prolonged period of time and has been on ventilatory support. The patient was advised on tracheostomy. This was discussed with the family, who showed understanding and agreed to proceed. DESCRIPTION OF PROCEDURE: After explaining to the patient's family in detail and informed consent was obtained, the patient was identified in the ICU and was transferred straight to the operating room. Once after induction of anesthesia, the neck was prepped and draped in a sterile fashion. Through a 3-cm incision approximately about 2 cm above the suprasternal notch, a transverse incision was made. The skin and platysma were divided. The strap muscles were in the midline. The trachea was identified. The tracheal rings were counted from the top and at the level of the second ring, an U-shaped flap was incised and was everted. The flap was then sutured in place and the subcutaneous tissue and skin using 3-0 Prolene suture. A 7-Puerto Rican tracheostomy tube was then inserted as the endotracheal tube was being pulled out and the balloon was inflated. The ventilator was then connected to the tracheostomy tube. The tracheostomy tube was then anchored in place with sutures on both sides and an umbilical tape was also placed around the neck. Dressing was placed. The patient was stable at the end of the procedure. The patient was transferred to the surgical ICU relatively in stable condition. <ELECTRONICALLY SIGNED> By: Chris Sosa MD 02/02/19 1234 1116 [email or web address] Jocelyne Sosa MD /nt
== END 2019-01-23 20:40 | DRG 4 ==
LOC: M.ERS 14:57 → M.ICU 15:57 → M.TBA-ER 15:57 → M.ICU 17:19
PROVIDERS: Emergency Medicine Emergency Medical Services; Internal Medicine; Internal Medicine Cardiovascular Disease; Internal Medicine Critical Care Medicine; Internal Medicine Gastroenterology; Internal Medicine Pulmonary Disease; ADMIT Family Medicine
PROC: B2111ZZ Fluoroscopy of Multiple Coronary Arteries using Low Osmolar Contrast (ICD-10-PCS; principal; 2018-12-13)
PROC: 5A1955Z Respiratory Ventilation, Greater than 96 Consecutive Hours (ICD-10-PCS; principal; 2018-12-13)
PROC: B2151ZZ Fluoroscopy of Left Heart using Low Osmolar Contrast (ICD-10-PCS; principal; 2018-12-13)
PROC: 4A023N7 Measurement of Cardiac Sampling and Pressure, Left Heart, Percutaneous Approach (ICD-10-PCS; principal; 2018-12-13)
PROC: 0BH17EZ Insertion of Endotracheal Airway into Trachea, Via Natural or Artificial Opening (ICD-10-PCS; principal; 2018-12-13)
PROC: 02HV33Z Insertion of Infusion Device into Superior Vena Cava, Percutaneous Approach (ICD-10-PCS; 2018-12-14)
PROC: 02HV33Z Insertion of Infusion Device into Superior Vena Cava, Percutaneous Approach (ICD-10-PCS; 2018-12-15)
PROC: 5A12012 Performance of Cardiac Output, Single, Manual (ICD-10-PCS; 2018-12-15)
PROC: 0DH63UZ Insertion of Feeding Device into Stomach, Percutaneous Approach (ICD-10-PCS; 2018-12-27)
PROC: 0B110F4 Bypass Trachea to Cutaneous with Tracheostomy Device, Open Approach (ICD-10-PCS; 2019-01-01)
PROC: 5A1955Z Respiratory Ventilation, Greater than 96 Consecutive Hours (ICD-10-PCS; 2019-01-01)
DX: A41.9 Sepsis, unspecified organism (principal); J69.0 Pneumonitis due to inhalation of food and vomit; I46.9 Cardiac arrest, cause unspecified; I49.01 Ventricular fibrillation; J96.21 Acute and chronic respiratory failure with hypoxia; J96.22 Acute and chronic respiratory failure with hypercapnia; I50.21 Acute systolic (congestive) heart failure; I63.9 Cerebral infarction, unspecified; G92 Toxic encephalopathy; K83.1 Obstruction of bile duct; R65.21 Severe sepsis with septic shock; I21.4 Non-ST elevation (NSTEMI) myocardial infarction; E87.2 Acidosis; G93.1 Anoxic brain damage, not elsewhere classified; E87.4 Mixed disorder of acid-base balance; I51.81 Takotsubo syndrome; Z99.11 Dependence on respirator [ventilator] status; R04.2 Hemoptysis; N39.0 Urinary tract infection, site not specified; I47.2 Ventricular tachycardia; F12.10 Cannabis abuse, uncomplicated; F15.10 Other stimulant abuse, uncomplicated; N89.8 Other specified noninflammatory disorders of vagina; I45.81 Long QT syndrome; D64.9 Anemia, unspecified; K59.03 Drug induced constipation; T40.2X5A Adverse effect of other opioids, initial encounter; B37.9 Candidiasis, unspecified; J42 Unspecified chronic bronchitis; G25.81 Restless legs syndrome; K81.9 Cholecystitis, unspecified; Y92.89 Other specified places as the place of occurrence of the external cause; Z79.899 Other long term (current) drug therapy